=== PATIENT | female | born 1950 | race Caucasian/White ===

== ENCOUNTER 2016-04-09 20:27 | Emergency (ER) | payer MEDICARE, OTHER ==
[2016-04-09] MEDS ORDERED: oxyCODONE 5 MG TABLET PO STA (21:05)
[2016-04-09] MEDS ORDERED: oxyCODONE/ACET 5/325 Prepack 4 PO ONE (21:06)
[2016-04-09] MEDS ORDERED: oxyCODONE 5 MG TABLET ONE (21:06)
[2016-04-09] MEDS ORDERED: oxyCODONE/ACET 5/325 Prepack 4 PO STA (21:21)
== END 2016-04-09 21:15 | disposition home or self-care (01) ==
DX: S56.912A Strain of unspecified muscles, fascia and tendons at forearm level, left arm, initial encounter (principal); X50.3XXA Overexertion from repetitive movements, initial encounter; Y93.H2 Activity, gardening and landscaping; Y92.007 Garden or yard of unspecified non-institutional (private) residence as the place of occurrence of the external cause; I10 Essential (primary) hypertension; Z86.718 Personal history of other venous thrombosis and embolism; E11.42 Type 2 diabetes mellitus with diabetic polyneuropathy; Z79.4 Long term (current) use of insulin; E11.51 Type 2 diabetes mellitus with diabetic peripheral angiopathy without gangrene; Z79.01 Long term (current) use of anticoagulants; Z79.84 Long term (current) use of oral hypoglycemic drugs
CPT/HCPCS: 99283; A9270

== ENCOUNTER 2016-04-22 12:12 | Outpatient (CLI) | payer MEDICARE, OTHER | END 2016-04-22 12:13 | disposition home or self-care (01) | DX: R50.9 Fever, unspecified (principal); M79.1 Myalgia ==

== ENCOUNTER 2016-04-24 | Outpatient (CLI) | payer MEDICARE, OTHER | END 2016-04-24 00:51 | disposition critical access hospital (66) | CPT/HCPCS: A0425; A0427 ==

== ENCOUNTER 2016-04-24 01:02 | Inpatient (IN) | payer MEDICARE, OTHER ==
[2016-04-24] MEDS ORDERED: oxyCODONE 5 MG TABLET PO STA (01:30)
[2016-04-24] MEDS ORDERED: PIPERACILLIN/TAZOBACTAM 3.375 GM in SODIUM CHLORIDE 0.9% MINIBAG 100 ML IV STA (02:06)
[2016-04-24] MEDS ORDERED: VANCOMYCIN INJ 1 GM in SODIUM CHLORIDE 0.9% 250 ML IV STA (02:06)
[2016-04-24] MEDS ORDERED: OSELTAMIVIR 75 MG CAPSULE PO STA (02:07)
[2016-04-24] MEDS ORDERED: ACETAMINOPHEN 500 MG TABLET PO STA (02:11)
[2016-04-24] MEDS ORDERED: ACETAMINOPHEN 500 MG TABLET PO ONE (02:12)
[2016-04-24] MEDS ORDERED: OSELTAMIVIR 75 MG CAPSULE PO ONE (02:12)
[2016-04-24] MEDS ORDERED: oxyCODONE 5 MG TABLET ONE (02:12)
[2016-04-24] MEDS ORDERED: ALBUTEROL NEB 2.5 MG/3 ML INH PRN (02:47)
[2016-04-24] MEDS ORDERED: VANCOMYCIN PER PHARMACY 1 GM in SODIUM CHLORIDE 0.9% 250 ML IV SCH (03:00)
[2016-04-24] MEDS: GABAPENTIN 300 MG CAPSULE PO SCH ×2 (04:43→04:49)
[2016-04-24] MEDS: SODIUM CHLORIDE FLUSH 0.9% 10 ML SYRINGE IVP PRN (04:43)
[2016-04-24] MEDS: SODIUM CHLORIDE 0.9% 1,000 ML IV SCH (04:43)
[2016-04-24] MEDS: HYDROcod/ACETAM 7.5 MG/325 MG TABLET PO SCH ×7 (04:43→21:58)
[2016-04-24] MEDS ORDERED: VANCOMYCIN INJ 1.75 GM in SODIUM CHLORIDE 0.9% 500 ML IV SCH (05:00)
[2016-04-24] MEDS ORDERED: DEXTROSE GEL 37.5 GM TUBE PO PRN ×2 (05:51→06:13)
[2016-04-24] MEDS ORDERED: DEXTROSE 5% 1,000 ML IV PRN ×2 (05:51→06:13)
[2016-04-24] MEDS ORDERED: DEXTROSE 50% ABBOJECT 25 GM/50 ML SYRINGE IVP PRN ×2 (05:51→06:13)
[2016-04-24] MEDS ORDERED: GLUCAGON 1 MG/ML VIAL SUBQ PRN ×2 (05:51→06:13)
[2016-04-24] MEDS ORDERED: methylPREDNISolone SUCCINATE 40 MG/ML VIAL IVP SCH (06:00)
[2016-04-24] MEDS ORDERED: metroNIDAZOLE 500 MG/100 ML 100 ML IV SCH (06:00)
[2016-04-24] MEDS ORDERED: GABAPENTIN 300 MG CAPSULE PO SCH (06:00)
[2016-04-24] MEDS: PANTOPRAZOLE 40 MG TABLET PO SCH (06:56)
[2016-04-24] MEDS: CYCLOBENZAPRINE 10 MG TABLET PO SCH ×3 (06:56→21:59)
[2016-04-24] MEDS: SODIUM CHLORIDE FLUSH 0.9% 10 ML SYRINGE IVP SCH ×3 (06:57→21:59)
[2016-04-24] MEDS: BENZOCAINE/MENTHOL LOZENGE MM PRN (06:57)
[2016-04-24] MEDS ORDERED: AZTREONAM 1 GM in SODIUM CHLORIDE 0.9% MINIBAG 100 ML IV SCH (07:00)
[2016-04-24] MEDS: LEVOTHYROXINE 100 MCG TABLET PO SCH (07:11)
[2016-04-24] MEDS ORDERED: INSULIN GLARGINE 300 UNIT/3 ML PEN SUBQ SCH ×4 (08:00→21:00)
[2016-04-24] MEDS: TOLTERODINE LA 2 MG CAPSULE PO SCH (08:16)
[2016-04-24] MEDS: POTASSIUM CHLORIDE 10 MEQ CAPSULE PO SCH (08:16)
[2016-04-24] MEDS: FERROUS GLUCONATE 324 MG TABLET PO SCH (08:17)
[2016-04-24] MEDS: LOSARTAN 50 MG TABLET PO SCH (08:17)
[2016-04-24] MEDS: OSELTAMIVIR 75 MG CAPSULE PO SCH ×2 (08:18→21:59)
[2016-04-24] MEDS: MONTELUKAST 10 MG TABLET PO SCH (08:18)
[2016-04-24] MEDS: FEXOFENADINE 60 MG TABLET PO SCH (08:18)
[2016-04-24] MEDS: POLYETHYLENE GLYCOL 3350 17 GM PACKET PO SCH (08:19)
[2016-04-24] MEDS: INSULIN ASPART 300 UNIT/3 ML PEN SUBQ SCH ×4 (08:20→21:51)
[2016-04-24] MEDS ORDERED: guaiFENesin 600 MG TABLET PO SCH (09:00)
[2016-04-24] MEDS: PREGABALIN 25 MG CAPSULE PO SCH ×2 (11:40→21:58)
[2016-04-24] MEDS: PIPERACILLIN/TAZOBACTAM 3.375 GM in SODIUM CHLORIDE 0.9% MINIBAG 100 ML IV SCH ×2 (11:41→18:52)
[2016-04-24] MEDS: guaiFENesin/DEXTROMETHORPHAN 10 ML UDC PO PRN ×2 (16:23→22:12)
[2016-04-24] MEDS: HYDROmorphone 1 MG/ML SYRINGE IVP PRN (16:23)
[2016-04-24] MEDS: FORMOTEROL FUMARATE NEB 20 MCG/2 ML INH SCH (19:50)
[2016-04-24] MEDS: BUDESONIDE 0.5 MG/2 ML NEB INH SCH (19:50)
[2016-04-24] MEDS ORDERED: METOPROLOL 5 MG/5 ML VIAL IVP SCH (20:00)
[2016-04-24] MEDS: methylPREDNISolone SUCCINATE 125 MG/2 ML VIAL IVP SCH (21:59)
[2016-04-25] MEDS: HYDROcod/ACETAM 7.5 MG/325 MG TABLET PO SCH ×6 (00:59→21:15)
[2016-04-25] MEDS: SODIUM CHLORIDE 0.9% 1,000 ML IV SCH ×3 (01:20→13:43)
[2016-04-25] MEDS: PIPERACILLIN/TAZOBACTAM 3.375 GM in SODIUM CHLORIDE 0.9% MINIBAG 100 ML IV SCH ×3 (02:38→18:09)
[2016-04-25] MEDS: guaiFENesin/DEXTROMETHORPHAN 10 ML UDC PO PRN ×3 (04:51→19:48)
[2016-04-25] MEDS: IPRATROPIUM/ALBUTEROL 3 ML NEB INH PRN ×3 (05:15→16:25)
[2016-04-25] MEDS: HYDROmorphone 1 MG/ML SYRINGE IVP PRN ×3 (05:50→18:58)
[2016-04-25] MEDS: SODIUM CHLORIDE FLUSH 0.9% 10 ML SYRINGE IVP SCH ×3 (05:50→16:28)
[2016-04-25] MEDS: CYCLOBENZAPRINE 10 MG TABLET PO SCH ×3 (07:07→21:15)
[2016-04-25] MEDS: LEVOTHYROXINE 100 MCG TABLET PO SCH (07:32)
[2016-04-25] MEDS: PANTOPRAZOLE 40 MG TABLET PO SCH (07:32)
[2016-04-25] MEDS ORDERED: SACCHAROMYCES BOULARDII 250 MG CAPSULE PO SCH ×2 (08:00→17:00)
[2016-04-25] MEDS: INSULIN ASPART 300 UNIT/3 ML PEN SUBQ SCH ×4 (08:13→21:19)
[2016-04-25] MEDS: POTASSIUM CHLORIDE 10 MEQ CAPSULE PO SCH (08:17)
[2016-04-25] MEDS: PREGABALIN 25 MG CAPSULE PO SCH ×2 (08:17→21:14)
[2016-04-25] MEDS: FERROUS GLUCONATE 324 MG TABLET PO SCH (08:18)
[2016-04-25] MEDS: TOLTERODINE LA 2 MG CAPSULE PO SCH (08:19)
[2016-04-25] MEDS: MONTELUKAST 10 MG TABLET PO SCH (08:19)
[2016-04-25] MEDS: OSELTAMIVIR 75 MG CAPSULE PO SCH ×2 (08:19→21:15)
[2016-04-25] MEDS: FEXOFENADINE 60 MG TABLET PO SCH (08:20)
[2016-04-25] MEDS: POLYETHYLENE GLYCOL 3350 17 GM PACKET PO SCH (08:22)
[2016-04-25] MEDS: methylPREDNISolone SUCCINATE 125 MG/2 ML VIAL IVP SCH (08:24)
[2016-04-25] MEDS: LOSARTAN 50 MG TABLET PO SCH (08:27)
[2016-04-25] MEDS: BUDESONIDE 0.5 MG/2 ML NEB INH SCH ×2 (09:30→20:15)
[2016-04-25] MEDS: FORMOTEROL FUMARATE NEB 20 MCG/2 ML INH SCH ×2 (09:30→20:15)
[2016-04-25] MEDS: INSULIN GLARGINE 300 UNIT/3 ML PEN SUBQ SCH ×2 (11:45→21:17)
[2016-04-25] MEDS: SACCHAROMYCES BOULARDII 250 MG CAPSULE PO SCH (16:27)
[2016-04-25] MEDS ORDERED: WARFARIN 5 MG TABLET PO STA (17:20)
[2016-04-25] MEDS ORDERED: methylPREDNISolone SUCCINATE 125 MG/2 ML VIAL IVP SCH (21:00)
[2016-04-25] MEDS ORDERED: INSULIN ASPART 300 UNIT/3 ML PEN SUBQ SCH (21:19)
[2016-04-26] MEDS: SODIUM CHLORIDE 0.9% 1,000 ML IV SCH ×3 (16:50→16:57)
[2016-04-26] MEDS: CYCLOBENZAPRINE 10 MG TABLET PO SCH ×3 (16:51→21:33)
[2016-04-26] MEDS: SODIUM CHLORIDE FLUSH 0.9% 10 ML SYRINGE IVP SCH ×3 (16:51→21:35)
[2016-04-26] MEDS: HYDROcod/ACETAM 7.5 MG/325 MG TABLET PO SCH ×6 (16:51→21:33)
[2016-04-26] MEDS: PIPERACILLIN/TAZOBACTAM 3.375 GM in SODIUM CHLORIDE 0.9% MINIBAG 100 ML IV SCH ×3 (16:51→18:28)
[2016-04-26] MEDS: FERROUS GLUCONATE 324 MG TABLET PO SCH (16:52)
[2016-04-26] MEDS: BUDESONIDE 0.5 MG/2 ML NEB INH SCH (16:52)
[2016-04-26] MEDS: FORMOTEROL FUMARATE NEB 20 MCG/2 ML INH SCH (16:52)
[2016-04-26] MEDS: LEVOTHYROXINE 100 MCG TABLET PO SCH (16:52)
[2016-04-26] MEDS: PANTOPRAZOLE 40 MG TABLET PO SCH (16:52)
[2016-04-26] MEDS: INSULIN ASPART 300 UNIT/3 ML PEN SUBQ SCH ×4 (16:53→21:33)
[2016-04-26] MEDS: INSULIN GLARGINE 300 UNIT/3 ML PEN SUBQ SCH ×2 (16:53→21:35)
[2016-04-26] MEDS: MONTELUKAST 10 MG TABLET PO SCH (16:54)
[2016-04-26] MEDS: FEXOFENADINE 60 MG TABLET PO SCH (16:54)
[2016-04-26] MEDS: SACCHAROMYCES BOULARDII 250 MG CAPSULE PO SCH ×2 (16:54→18:28)
[2016-04-26] MEDS: POLYETHYLENE GLYCOL 3350 17 GM PACKET PO SCH (16:54)
[2016-04-26] MEDS: OSELTAMIVIR 75 MG CAPSULE PO SCH ×2 (16:54→21:33)
[2016-04-26] MEDS: LOSARTAN 50 MG TABLET PO SCH (16:54)
[2016-04-26] MEDS: TOLTERODINE LA 2 MG CAPSULE PO SCH (16:55)
[2016-04-26] MEDS: POTASSIUM CHLORIDE 10 MEQ CAPSULE PO SCH (16:55)
[2016-04-26] MEDS: PREGABALIN 25 MG CAPSULE PO SCH ×2 (16:55→21:32)
[2016-04-26] MEDS: guaiFENesin/DEXTROMETHORPHAN 10 ML UDC PO PRN (18:32)
[2016-04-26] MEDS ORDERED: SODIUM CHLORIDE INHALATION 3 ML NEB ONE (19:34)
[2016-04-26] MEDS: HYDROmorphone 1 MG/ML SYRINGE IVP PRN (19:36)
[2016-04-26] MEDS: LEVALBUTEROL 1.25 MG INH PRN (19:40)
[2016-04-26] MEDS ORDERED: WARFARIN 5 MG TABLET PO SCH (20:30)
[2016-04-26] MEDS: BENZOCAINE/MENTHOL LOZENGE MM PRN (21:10)
[2016-04-27] MEDS: HYDROcod/ACETAM 7.5 MG/325 MG TABLET PO SCH ×3 (00:20→08:48)
[2016-04-27] MEDS: PIPERACILLIN/TAZOBACTAM 3.375 GM in SODIUM CHLORIDE 0.9% MINIBAG 100 ML IV SCH ×2 (01:45→03:00)
[2016-04-27] MEDS: SODIUM CHLORIDE FLUSH 0.9% 10 ML SYRINGE IVP PRN (01:46)
[2016-04-27] MEDS: CYCLOBENZAPRINE 10 MG TABLET PO SCH (06:16)
[2016-04-27] MEDS: SODIUM CHLORIDE FLUSH 0.9% 10 ML SYRINGE IVP SCH (06:16)
[2016-04-27] MEDS: PANTOPRAZOLE 40 MG TABLET PO SCH (06:16)
[2016-04-27] MEDS: LEVOTHYROXINE 100 MCG TABLET PO SCH (06:16)
[2016-04-27] MEDS ORDERED: SODIUM CHLORIDE INHALATION 3 ML NEB ONE (07:07)
[2016-04-27] MEDS: LEVALBUTEROL 1.25 MG INH PRN (08:10)
[2016-04-27] MEDS: INSULIN GLARGINE 300 UNIT/3 ML PEN SUBQ SCH (08:43)
[2016-04-27] MEDS: guaiFENesin/DEXTROMETHORPHAN 10 ML UDC PO PRN (08:46)
[2016-04-27] MEDS: TOLTERODINE LA 2 MG CAPSULE PO SCH (08:47)
[2016-04-27] MEDS: OSELTAMIVIR 75 MG CAPSULE PO SCH (08:47)
[2016-04-27] MEDS: SACCHAROMYCES BOULARDII 250 MG CAPSULE PO SCH (08:47)
[2016-04-27] MEDS: FEXOFENADINE 60 MG TABLET PO SCH (08:47)
[2016-04-27] MEDS: PREGABALIN 25 MG CAPSULE PO SCH (08:47)
[2016-04-27] MEDS: FERROUS GLUCONATE 324 MG TABLET PO SCH (08:48)
[2016-04-27] MEDS: POTASSIUM CHLORIDE 10 MEQ CAPSULE PO SCH (08:48)
[2016-04-27] MEDS: LOSARTAN 50 MG TABLET PO SCH (08:48)
[2016-04-27] MEDS: MONTELUKAST 10 MG TABLET PO SCH (08:48)
[2016-04-27] MEDS: INSULIN ASPART 300 UNIT/3 ML PEN SUBQ SCH (08:49)
[2016-04-27] MEDS: POLYETHYLENE GLYCOL 3350 17 GM PACKET PO SCH (08:49)
[2016-04-27] MEDS ORDERED: WARFARIN 5 MG TABLET PO SCH (14:00)
== END 2016-04-27 10:30 | disposition home or self-care (01) | DRG 193 ==
DX: J10.1 Influenza due to other identified influenza virus with other respiratory manifestations (principal); D66 Hereditary factor VIII deficiency; L03.116 Cellulitis of left lower limb; R41.82 Altered mental status, unspecified; N39.0 Urinary tract infection, site not specified; R94.31 Abnormal electrocardiogram [ECG] [EKG]; E11.42 Type 2 diabetes mellitus with diabetic polyneuropathy; E11.65 Type 2 diabetes mellitus with hyperglycemia; I73.9 Peripheral vascular disease, unspecified; B96.20 Unspecified Escherichia coli [E. coli] as the cause of diseases classified elsewhere; K43.2 Incisional hernia without obstruction or gangrene; E78.00 Pure hypercholesterolemia, unspecified; G47.30 Sleep apnea, unspecified; I10 Essential (primary) hypertension; K43.9 Ventral hernia without obstruction or gangrene; Z86.19 Personal history of other infectious and parasitic diseases; E03.9 Hypothyroidism, unspecified; M19.90 Unspecified osteoarthritis, unspecified site; G47.33 Obstructive sleep apnea (adult) (pediatric); E78.5 Hyperlipidemia, unspecified; E66.01 Morbid (severe) obesity due to excess calories; D75.82 Heparin induced thrombocytopenia (HIT); Z68.36 Body mass index [BMI] 36.0-36.9, adult; K44.9 Diaphragmatic hernia without obstruction or gangrene; N81.10 Cystocele, unspecified; R00.0 Tachycardia, unspecified; R53.1 Weakness; Z98.84 Bariatric surgery status; Z79.4 Long term (current) use of insulin; Z79.02 Long term (current) use of antithrombotics/antiplatelets; Z79.51 Long term (current) use of inhaled steroids; Z79.891 Long term (current) use of opiate analgesic; Z96.659 Presence of unspecified artificial knee joint; Z79.899 Other long term (current) drug therapy; Z96.642 Presence of left artificial hip joint; Z96.653 Presence of artificial knee joint, bilateral; Z86.718 Personal history of other venous thrombosis and embolism; Z66 Do not resuscitate

== ENCOUNTER 2016-11-14 14:54 | Outpatient (CLI) | payer MEDICARE, OTHER ==
[2016-11-14 15:56] LABS: CREATININE 0.8 mg/dL (0.4-1.0)
== END 2016-11-14 14:55 | disposition home or self-care (01) ==
LOC: LAB 14:54
PROVIDERS: ATTEND Internal Medicine
DX: Z79.899 Other long term (current) drug therapy (principal)
CPT/HCPCS: 36415; 82565; 84520

== ENCOUNTER 2017-05-29 09:53 | Outpatient (CLI) | payer MEDICARE, OTHER | END 2017-05-29 09:54 | disposition home or self-care (01) | LOC: NS 09:53 | PROVIDERS: ATTEND Internal Medicine | DX: Z71.3 Dietary counseling and surveillance (principal); E11.9 Type 2 diabetes mellitus without complications; Z68.41 Body mass index [BMI] 40.0-44.9, adult; Z79.4 Long term (current) use of insulin | CPT/HCPCS: 97802 ==

== ENCOUNTER 2017-06-18 09:50 | Outpatient (CLI) | payer MEDICARE, OTHER | END 2017-06-18 09:51 | disposition home or self-care (01) | LOC: NS 09:50 | PROVIDERS: ATTEND Internal Medicine | DX: Z71.3 Dietary counseling and surveillance (principal); E11.9 Type 2 diabetes mellitus without complications; Z79.4 Long term (current) use of insulin | CPT/HCPCS: 97803 ==

== ENCOUNTER 2018-08-02 17:04 | Outpatient (CLI) | payer MEDICARE, BC, OTHER | END 2018-08-02 17:05 | disposition critical access hospital (66) | LOC: EMS 17:04 | PROVIDERS: ATTEND Surgery | DX: R41.82 Altered mental status, unspecified (principal); R09.89 Other specified symptoms and signs involving the circulatory and respiratory systems; R45.1 Restlessness and agitation | CPT/HCPCS: A0425; A0427 ==

== ENCOUNTER 2018-08-02 17:16 | Inpatient (IN) | payer MEDICARE, BC, OTHER ==
--- NOTE | 2018-08-02 17:39 | ED Physician Documentation ---
History of Present Illness - Stated complaint Stated Complaint: ALOC - Chief complaint Chief Complaint: Resp - History obtained from History obtained from: Patient, Family (), EMS - History of Present Illness Timing: Other (Increasing confusion x48 hours c/w prior episodes of septicemia. Much worse this afternoon. 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[employer] F[employer]ER: None : Other HEENT: Dental implants Psych: None Musculoskeletal: Osteoarthritis, Rheumatoid arthritis Derm: Other drug resistant infections - Past Surgical History Past Surgical History: Yes General: Cholecystectomy, Other Ortho: Knee replacement, Arthroscopic surgery, Carpal Tunnel surgery, Other /ADVISOR [employer]ER: section, Hysterectomy HEENT: Tonsil/Adenoidectomy - Present Medications Home Medications: Ambulatory Orders Medication Instructions Recorded Confirmed Albuterol Sulfate [Proair Hfa 2 puffs INH Q4H PRN 04/24/16 04/24/16 Inhaler] Celecoxib [Celebrex] 200 mg PO DAILY 04/24/16 04/24/16 Cyclobenzaprine [Flexeril] 10 mg PO TID 04/24/16 04/24/16 Esomeprazole [NexIUM] 40 mg PO DAILY 04/24/16 04/24/16 Fexofenadine HCl [Latoya Allergy] 180 mg PO DAILY 04/24/16 04/24/16 Fluticasone [Flonase] 2 spray CROW DAILY 04/24/16 04/24/16 Glipizide [Glucotrol Xl] 5 mg PO DAILY 04/24/16 04/24/16 Hydrocodone/Acetaminophen 2 tab PO Q4H PRN 04/24/16 04/24/16 [Hydrocodon-Acetaminoph 7.5-325] Insulin Glargine,Hum.rec.anlog 22 units SUBQ QPM 04/24/16 04/24/16 [Lantus Solostar] Insulin Glargine,Hum.rec.anlog 32 units SUBQ DAILY 04/24/16 04/24/16 [Lantus Solostar] Insulin Lispro [Humalog Kwikpen 0 - 25 units SUBQ .SLIDINGSCALE PRN 04/24/16 04/24/16 U-100] Levothyroxine Sodium [Synthroid] 200 mcg PO DAILY 04/24/16 04/24/16 Losartan [Cozaar] 25 mg PO DAILY 04/24/16 04/24/16 Montelukast [Singulair] 10 mg PO DAILY 04/24/16 04/24/16 Potassium Chloride 10 meq PO DAILY 04/24/16 04/24/16 Pregabalin [Lyrica] 50 mg PO TID 04/24/16 04/24/16 Tolterodine Tartrate [Detrol] 4 mg PO DAILY 04/24/16 04/24/16 Warfarin Sodium 7.5 mg PO DAILY 04/24/16 04/24/16 hydroCHLOROthiazide [Hydrodiuril] 50 mg PO DAILY 04/24/16 04/24/16 - Allergies Allergies/Adverse Reactions: Allergies Allergy/AdvReac Type Severity Reaction Status Date / Time aspirin Allergy Severe Respiratory Verified 04/24/16 02:04 cefamandole nafate * Allergy Severe Respiratory Verified 04/24/16 02:04 [From Mandol] Heparin Analogues Allergy Severe Respiratory Verified 04/24/16 02:04 meperidine HCl * Allergy Severe Respiratory Verified 04/24/16 02:04 [From Demerol] naproxen Allergy Severe Respiratory Verified 04/24/16 02:04 rofecoxib [From Vioxx] Allergy Severe Respiratory Verified 04/24/16 02:04 zoster vaccine live Allergy Severe Respiratory Verified 04/24/16 02:04 promethazine HCl * Allergy Respiratory Verified 04/24/16 02:04 [From Phenergan] Pdudiwo-Bin-Xta Reductase Allergy Respiratory Verified 04/24/16 02:04 Inhibitor amoxicillin trihydrate * AdvReac Intermediate Cramps Verified 04/24/16 02:04 [From Augmentin] erythromycin base AdvReac Intermediate Dizziness Verified 04/24/16 02:04 [Erythromycin Base] metformin AdvReac Intermediate Nausea Verified 04/24/16 02:04 potassium clavulanate * AdvReac Intermediate Cramps Verified 04/24/16 02:04 [From Augmentin] Sulfa (Sulfonamide AdvReac Intermediate Itching Verified 04/24/16 02:04 Antibiotics) levofloxacin [From Levaquin] AdvReac Mild Nausea Verified 04/24/16 02:04 cadexomer iodine * AdvReac Unknown Unknown Verified 04/24/16 02:04 [From Iodosorb] bee stings AdvReac Severe Respiratory Uncoded 04/24/16 02:04 - Social History Does the pt smoke?: No Smoking Status: Never smoker Does the pt drink ETOH?: Yes Does the pt have substance abuse?: No - Family History Family history: reports: Non contributory - Immunizations Immunizations are current?: Yes - POLST Patient has POLST: No PD ED PE NORMAL - Vitals Vital signs reviewed: Yes (tachycardic and tachypneic.) - General General: Other (A/O x2) - HEENT HEENT: PERRL, EOMI - Neck Neck: Supple, no meningeal sign, No bony TTP - Cardiac Cardiac: Other (tachycardic) - Abdomen Abdomen: Soft, Non tender - Back Back: No CVA TTP, No spinal TTP - Derm Derm: Normal color, Warm and dry - Extremities Extremities: Other (chronic venous stasis) - Neuro Neuro: Other (A/Ox2) Eye Opening: Spontaneous Motor: Obeys Commands Results - Vitals Vitals: Vital Signs - 24 hr 08/02/18 08/02/18 08/02/18 17:23 18:07 19:23 Temperature 98.3 C H 37.4 C Heart Rate 125 H 118 H 112 H Respiratory 32 H 14 16 Rate Blood Pressure 166/98 H 141/67 H 137/68 H O2 Saturation 99 96 96 08/02/18 08/02/18 19:46 20:08 Temperature Heart Rate 109 H 107 H Respiratory 17 20 Rate Blood Pressure 123/68 134/70 H O2 Saturation 93 93 Oxygen O2 Source Nasal cannula Oxygen Flow Rate 3 - EKG (time done) 1744 Rate: Rate (enter#) (126) Rhythm: Sinus tachycardia [place]: Normal Intervals: Normal [place] QRS: Low voltage Ischemia: Non specific changes Computer interpretation: Agree with computer - Labs Labs: Laboratory Tests 08/02/18 08/02/18 08/02/18 17:40 17:40 17:40 WBC 14.3 H RBC 4.28 Hgb 12.6 Hct 37.8 MCV 88.3 MCH 29.4 MCHC 33.3 RDW 13.3 Plt Count 228 MPV 8.1 Neut # (Auto) 13.1 H Lymph # (Auto) 0.3 L Borden # (Auto) 0.7 Eos # (Auto) 0.0 Baso # (Auto) 0.0 Absolute Nucleated RBC 0.00 Nucleated RBC % 0.0 PT INR VBG pH VBG pCO2 VBG pO2 VBG HCO3 VBG Total CO2 VBG O2 Saturation VBG Base Excess Sodium 135 Potassium 3.4 L Chloride 96 L Carbon Dioxide 26 Anion Gap 13.0 BUN 25 H Creatinine 0.7 Estimated GFR (MDRD) 83 L Glucose 184 H Lactic Acid 0.8 Calcium 9.0 Magnesium 1.5 L Total Bilirubin 1.0 AST 26 ALT 25 Alkaline Phosphatase 79 Troponin I Total Protein 7.4 Albumin 3.6 Globulin 3.8 Albumin/Globulin Ratio 0.9 L Lipase 20 L Urine Color Urine Clarity Urine pH Ur Specific Coin Urine Protein Urine Glucose (UA) Urine Ketones Urine Occult Blood Urine Nitrite Urine Bilirubin Urine Urobilinogen Ur Leukocyte Esterase Urine RBC Urine WBC Ur Squamous Epith Cells Urine Bacteria Ur Microscopic Review Urine Culture Comments 08/02/18 08/02/18 08/02/18 17:40 17:40 17:40 WBC RBC Hgb Hct MCV MCH MCHC RDW Plt Count MPV Neut # (Auto) Lymph # (Auto) Borden # (Auto) Eos # (Auto) Baso # (Auto) Absolute Nucleated RBC Nucleated RBC % PT 27.1 H INR 2.4 H VBG pH 7.435 H VBG pCO2 42.9 VBG pO2 33.1 VBG HCO3 28.2 H VBG Total CO2 29.5 H VBG O2 Saturation 68.8 VBG Base Excess 3.5 H Sodium Potassium Chloride Carbon Dioxide Anion Gap BUN Creatinine Estimated GFR (MDRD) Glucose Lactic Acid Calcium Magnesium Total Bilirubin AST ALT Alkaline Phosphatase Troponin I < 0.04 Total Protein Albumin Globulin Albumin/Globulin Ratio Lipase Urine Color Urine Clarity Urine pH Ur Specific Coin Urine Protein Urine Glucose (UA) Urine Ketones Urine Occult Blood Urine Nitrite Urine Bilirubin Urine Urobilinogen Ur Leukocyte Esterase Urine RBC Urine WBC Ur Squamous Epith Cells Urine Bacteria Ur Microscopic Review Urine Culture Comments 08/02/18 19:20 WBC RBC Hgb Hct MCV MCH MCHC RDW Plt Count MPV Neut # (Auto) Lymph # (Auto) Borden # (Auto) Eos # (Auto) Baso # (Auto) Absolute Nucleated RBC Nucleated RBC % PT INR VBG pH VBG pCO2 VBG pO2 VBG HCO3 VBG Total CO2 VBG O2 Saturation VBG Base Excess Sodium Potassium Chloride Carbon Dioxide Anion Gap BUN Creatinine Estimated GFR (MDRD) Glucose Lactic Acid Calcium Magnesium Total Bilirubin AST ALT Alkaline Phosphatase Troponin I Total Protein Albumin Globulin Albumin/Globulin Ratio Lipase Urine Color YELLOW Urine Clarity CLEAR Urine pH 5.5 Ur Specific Coin 1.020 Urine Protein TRACE Urine Glucose (UA) NEGATIVE Urine Ketones 15 H Urine Occult Blood MODERATE H Urine Nitrite POSITIVE H Urine Bilirubin NEGATIVE Urine Urobilinogen 0.2 (NORMAL) Ur Leukocyte Esterase SMALL H Urine RBC 6-10 H Urine WBC >25 H Ur Squamous Epith Cells FEW Squamous Urine Bacteria Many H Ur Microscopic Review INDICATED Urine Culture Comments INDICATED - Rads (name of study) 1v chest Radiology: EMP read contemporaneously (viral pattern) PD MEDICAL DECISION MAKING - ED course ED course: This is a 67-year-old woman who presents with tachycardia, tachypnea, worsening altered mental status and fever. Note that the nurse's notes document 98.3 but they told me it was 38.3 Celsius. Per the this is consistent with past episodes of sepsis and UTI is found to be the source. Noting multiple antibiotic allergies she was given aztreonam and vancomycin after blood cultures. Her mental status improved significantly and her oxygen requirement waned. Spoke with Dr. Lucio for admission at 8 PM. Departure - Departure Disposition: 66 [facility] DC/Xfer Clinical Impression: UTI (urinary tract infection) Qualifiers: Urinary tract infection type: acute pyelonephritis Qualified Code(s): N10 - A cute pyelonephritis Diabetes type 2, controlled Qualifiers: Diabetes mellitus custodial insulin use: unspecified custodial insulin use status Diabetes mellitus complication status: with hyperglycemia Qualified Code(s): E11.65 - Type 2 diabetes mellitus with hyperglycemia Mental status change Qualifiers: Altered mental status type: delirium Qualified Code(s): R41.0 - Disorientation, unspecified Condition: Serious
[2018-08-02] MEDS ORDERED: AZTREONAM 2 GM in SODIUM CHLORIDE 0.9% MINIBAG 100 ML IV STA (17:44)
[2018-08-02] MEDS ORDERED: VANCOMYCIN INJ 1.5 GM in SODIUM CHLORIDE 0.9% 500 ML IV STA (17:44)
[2018-08-02 17:51] LABS: BASOPHILS % (AUTO) 0.2 %; EOSINOPHILS % (AUTO) 0.1 %; HGB - HEMOGLOBIN 12.6 g/dL (12.0-16.0); LYMPHOCYTES # (AUTO) 0.3 10^3/uL (1.5-3.5); LYMPHOCYTES % (AUTO) 2.3 %; MEAN CORPUSCULAR HEMOGLOBIN 29.4 pg (27.0-31.0); MEAN CORPUSCULAR HGB CONC 33.3 g/dL (32.0-36.0); MEAN CORPUSCULAR VOLUME 88.3 fL (81.0-99.0); MEAN PLATELET VOLUME 8.1 fL (7.9-10.8); MONOCYTES # (AUTO) 0.7 10^3/uL (0.0-1.0); MONOCYTES % (AUTO) 5.2 %; NEUTROPHILS # (AUTO) 13.1 10^3/uL (1.5-6.6); NEUTROPHILS % (AUTO) 92.2 %; PLT - PLATELET COUNT 228 10^3/uL (130-450); RED BLOOD COUNT 4.28 10^6/uL (4.20-5.40); RED CELL DISTRIBUTION WIDTH 13.3 % (12.0-15.0); VBG BASE EXCESS 3.5 mmol/L (-2 - +2); VBG PCO2 42.9 mmHg (41-51); VBG PH 7.435 (7.31-7.41); VBG PO2 33.1 mmHg (25-47); VBG TOTAL CO2 29.5 mmol/L (24-29); WHITE BLOOD COUNT 14.3 x10^3/uL (4.8-10.8)
[2018-08-02] MEDS ORDERED: DEXAMETHASONE 10 MG/ML VIAL IVP STA (17:57)
[2018-08-02] MEDS ORDERED: IPRATROPIUM/ALBUTEROL 3 ML NEB INH STA (17:57)
[2018-08-02 17:58] LABS: INR 2.4 (0.8-1.2); PT - PROTHROMBIN TIME 27.1 secs (9.9-12.6)
[2018-08-02] MEDS ORDERED: SODIUM CHLORIDE 0.9% MINIBAG 100 ML IV ONE ×2 (17:58→18:21)
[2018-08-02 18:01] LABS: ALBUMIN 3.6 g/dL (3.2-5.5); ALBUMIN/GLOBULIN RATIO 0.9 (1.0-2.2); CREATININE 0.7 mg/dL (0.4-1.0); MAGNESIUM 1.5 mg/dL (1.7-2.8); TOTAL PROTEIN 7.4 g/dL (6.7-8.2)
--- NOTE | 2018-08-02 18:27 | XRAY Report ---
Reason: DYSPNEA Procedure Date: 08/02/2018 Accession Number: [id number] / [id number] Procedure: XR - Chest 1 View X-Ray CPT Code: 05107 FULL RESULT: EXAM: CHEST RADIOGRAPHY EXAM DATE: 08/02/2018 06:11 PM. CLINICAL HISTORY: Dyspnea. COMPARISON: CHEST 1 VIEW 04/24/2016 1:48 AM. TECHNIQUE: 1 view. FINDINGS: Lungs/Pleura: No focal consolidation evident. There is however perihilar bronchial wall thickening diffusely somewhat increased since last exam. Lung volumes are low. Vascular crowding at the bases present. The pulmonary vasculature is within normal limits. Mediastinum: Within exam limitations, the cardiomediastinal contour is normal. Other: None. IMPRESSION: 1. Increased moderate perihilar bronchial wall thickening may represent bronchitis, reactive airways disease or viral pneumonia. 2. No focal consolidation evident. RADIA
[2018-08-02 19:30] LABS: BILIRUBIN,URINE NEGATIVE (NEGATIVE); GLUCOSE, URINE (UA) NEGATIVE (NEGATIVE); KETONES,URINE (UA) 15 mg/dL (NEGATIVE); LEUKOCYTE ESTERASE, URINE SMALL (NEGATIVE); NITRITE,URINE POSITIVE (NEGATIVE); OCCULT BLOOD,URINE MODERATE (NEGATIVE); PH,URINE 5.5 PH (5.0-7.5); PROTEIN,URINE TRACE mg/dL (NEGATIVE); UROBILINOGEN,URINE 0.2 (NORMAL) E.U./dL (NORMAL)
[2018-08-02 19:31] LABS: CLARITY,URINE CLEAR (CLEAR)
[2018-08-02 19:37] LABS: BACTERIA,URINE Many /HPF (None Seen); SQUAMOUS EPITHELIAL CELL,UR FEW Squamous (<= Few)
[2018-08-02] MEDS ORDERED: HYDROmorphone 1 MG/ML CARPUJECT IVP STA (19:51)
[2018-08-02] MEDS ORDERED: ACETAMINOPHEN 325 MG TABLET PO PRN (20:16)
[2018-08-02] MEDS ORDERED: HYDROcod/ACETAM 5/325 MG TABLET PO PRN (20:16)
[2018-08-02] MEDS ORDERED: ONDANSETRON ODT 4 MG TABLET TL PRN (20:16)
[2018-08-02] MEDS ORDERED: MORPHINE 2 MG/ML SYRINGE IVP PRN (20:16)
[2018-08-02] MEDS ORDERED: ZOLPIDEM 5 MG TABLET PO PRN (20:16)
[2018-08-02] MEDS ORDERED: ALBUTEROL NEB 2.5 MG/3 ML INH PRN (20:21)
--- NOTE | 2018-08-02 21:48 | HISTORY & PHYSICAL EXAMINATION ---
Chief Complaint - Chief Complaint Chief Complaint: Confusion History of Present Illness - Admitted From Admitted From:: Emergency Department - History Obtained From Records Reviewed: Current Hospital Stay History obtained from: Patient, , ED M.DDuane Exam Limitations: None - History of Present Illness HPI Comment/Other: Patient is a 67-year-old female with a medical history of UTI with sepsis, type 2 diabetes, hypothyroidism, recurrent cellulitis, abdominal wall defect with hernia, and obesity who presents with a 1 day history of confusion and change in mental status. This was noticed by the to a very mild extent last night but predominantly started to become more prevalent earlier today. Patient states she has a history of confusion and changes in mental status with infections which is more often related to Cellulitis, but in this case reports that about 3 days ago she started to notice a foul smell odor in her urine. She attempted to contact her PCPs office, and left a message through the front office staff hoping to either be seen or have a prescription for antibiotics for a self diagnosed UTI however she states no one contacted her from the office. In any case she dealt with it for a couple of days when she started to have very mild confusion last night, and more significant confusion today. In the emergency room she was also found to be hypoxic, initially placed on a 4 L nonrebreather, which was progressed to nasal cannula by the time of my examination. By the time of my examination she was relatively clear, and at baseline with no noticeable confusion. She had received IV fluids, a dose of aztreonam (Due to multiple antibiotic allergies) as well as vancomycin in the ED. Infection work-up was remarkable for a urinalysis with positive nitrites, and a relatively unremarkable chest x-ray, and a mildly elevated WBC count. Hospitalist service was asked to admit patient for UTI to treat with IV antibiotics. History - Past Medical History Cardiovascular: reports: Hypertension, High cholesterol, Peripheral Vascular Disease, Deep vein thrombosis Respiratory: reports: Sleep apnea Endocrine/Autoimmune: reports: Type 2 diabetes, HyPOthyroidism GI: reports: None PIPE CONNECTOR: reports: None : reports: Other HEENT: reports: Dental implants Psych: reports: None Musculoskeletal: reports: Osteoarthritis, Rheumatoid arthritis Derm: reports: Other drug resistant infections MRSA Hx?: No - Past Surgical History General: reports: Cholecystectomy, Other Ortho: reports: Knee replacement, Arthroscopic surgery, Carpal Tunnel surgery, Other /PIPE CONNECTOR: reports: section, Hysterectomy HEENT: reports: Tonsil/Adenoidectomy - Family & Social History Living arrangement: At home Living Situation: With spouse/s.o. - Substance History Use: Uses substance without health or social issues: NONE Abuse: Recurrent use of substance despite neg consequences: NONE Dependence: Experiences withdrawal or developed tolerances: NONE - POLST Patient has POLST: No POLST Status: DNR Meds/Allgy - Home Medications Home Medications: Ambulatory Orders Medication Instructions Recorded Confirmed Albuterol Sulfate [Proair Hfa 2 puffs INH Q4H PRN 04/24/16 04/24/16 Inhaler] Celecoxib [Celebrex] 200 mg PO DAILY 04/24/16 04/24/16 Cyclobenzaprine [Flexeril] 10 mg PO TID 04/24/16 04/24/16 Esomeprazole [NexIUM] 40 mg PO DAILY 04/24/16 04/24/16 Fexofenadine HCl [Latoya Allergy] 180 mg PO DAILY 04/24/16 04/24/16 Fluticasone [Flonase] 2 spray CROW DAILY 04/24/16 04/24/16 Glipizide [Glucotrol Xl] 5 mg PO DAILY 04/24/16 04/24/16 Hydrocodone/Acetaminophen 2 tab PO Q4H PRN 04/24/16 04/24/16 [Hydrocodon-Acetaminoph 7.5-325] Insulin Glargine,Hum.rec.anlog 22 units SUBQ QPM 04/24/16 04/24/16 [Lantus Solostar] Insulin Glargine,Hum.rec.anlog 32 units SUBQ DAILY 04/24/16 04/24/16 [Lantus Solostar] Insulin Lispro [Humalog Kwikpen 0 - 25 units SUBQ .SLIDINGSCALE PRN 04/24/16 04/24/16 U-100] Levothyroxine Sodium [Synthroid] 200 mcg PO DAILY 04/24/16 04/24/16 Losartan [Cozaar] 25 mg PO DAILY 04/24/16 04/24/16 Montelukast [Singulair] 10 mg PO DAILY 04/24/16 04/24/16 Potassium Chloride 10 meq PO DAILY 04/24/16 04/24/16 Pregabalin [Lyrica] 50 mg PO TID 04/24/16 04/24/16 Tolterodine Tartrate [Detrol] 4 mg PO DAILY 04/24/16 04/24/16 Warfarin Sodium 7.5 mg PO DAILY 04/24/16 04/24/16 hydroCHLOROthiazide [Hydrodiuril] 50 mg PO DAILY 04/24/16 04/24/16 - Allergies Allergies/Adverse Reactions: Allergies Allergy/AdvReac Type Severity Reaction Status Date / Time aspirin Allergy Severe Respiratory Verified 04/24/16 02:04 cefamandole nafate * Allergy Severe Respiratory Verified 04/24/16 02:04 [From Mandol] Heparin Analogues Allergy Severe Respiratory Verified 04/24/16 02:04 meperidine HCl * Allergy Severe Respiratory Verified 04/24/16 02:04 [From Demerol] naproxen Allergy Severe Respiratory Verified 04/24/16 02:04 rofecoxib [From Vioxx] Allergy Severe Respiratory Verified 04/24/16 02:04 zoster vaccine live Allergy Severe Respiratory Verified 04/24/16 02:04 promethazine HCl * Allergy Respiratory Verified 04/24/16 02:04 [From Phenergan] [id number] Reductase Allergy Respiratory Verified 04/24/16 02:04 Inhibitor amoxicillin trihydrate * AdvReac Intermediate Cramps Verified 04/24/16 02:04 [From Augmentin] erythromycin base AdvReac Intermediate Dizziness Verified 04/24/16 02:04 [Erythromycin Base] metformin AdvReac Intermediate Nausea Verified 04/24/16 02:04 potassium clavulanate * AdvReac Intermediate Cramps Verified 04/24/16 02:04 [From Augmentin] Sulfa (Sulfonamide AdvReac Intermediate Itching Verified 04/24/16 02:04 Antibiotics) levofloxacin [From Levaquin] AdvReac Mild Nausea Verified 04/24/16 02:04 cadexomer iodine * AdvReac Unknown Unknown Verified 04/24/16 02:04 [From Iodosorb] bee stings AdvReac Severe Respiratory Uncoded 04/24/16 02:04 Review of Systems - Constitutional Constitutional: reports: Fatigue, Fever, Chills, Weakness - Cardiovascular Cariovascular: denies: Chest pain - Respiratory Respiratory: denies: Cough, SOB at rest - Gastrointestinal Gastrointestinal: denies: Abdominal pain - Genitourinary Genitourinary: reports: Dysuria. denies: Flank pain, Urethral discharge - Musculoskeletal Musculoskeletal: reports: Back pain - Integumentary Integumentary: denies: Rash - Neurological Neurological: reports: General weakness. denies: Focal weakness, Headache - All Other Systems All Other Systems: reports: Reviewed and negative Prior Level of Functionality: Independent Exam - Vital Signs Reviewed Vital Signs: Yes Vital Signs: Vital Signs x48h Temp Pulse Resp BP Pulse Ox 08/02/18 21:03 101 H 14 132/77 H 94 08/02/18 20:30 106 H 14 118/102 H 97 08/02/18 20:08 107 H 20 134/70 H 93 08/02/18 19:46 109 H 17 123/68 93 08/02/18 19:23 37.4 C 112 H 16 137/68 H 96 08/02/18 18:07 118 H 14 141/67 H 96 08/02/18 17:23 98.3 C H 125 H 32 H 166/98 H 99 - Physical Exam General Appearance: positive: No acute distress Eyes Bilateral: positive: Normal inspection ENT: positive: ENT inspection nml Neck: positive: Nml inspection Respiratory: positive: Chest non-tender Cardiovascular: positive: Regular rate & rhythm Peripheral Pulses: positive: 2+ Abdomen: positive: Other (Patient has an obese abdomen with a massive abdominal wall defect with hernia, with overlying skin color changes but no evidence of infection) Skin: positive: Color nml Neurologic/Psychiatric: positive: Oriented x3 Sepsis Event Note (H) - Evaluation Current Stage of Sepsis: Ruled out Conclusion/Plan - Problem List (1) UTI (urinary tract infection) Conclusion/Plan: Urinalysis is suggestive of a probable E. coli infection. Given her multiple antibiotic allergies, will continue aztreonam, will hold vancomycin for now. Continue IV fluids as necessary, repeat WBC count in the morning. Follow culture and sensitivity and consider narrowing antibiotics based on sensitivity and patient's allergy profile.This is likely the underlying etiology of the confusion which has now since resolved. Qualifiers: Urinary tract infection type: acute cystitis Hematuria presence: without hematuria Qualified Code(s): N30.00 - Acute cystitis without hematuria (2) Diabetes type 2, controlled Conclusion/Plan: Continue home basal insulin with insulin sliding scale Qualifiers: Diabetes mellitus nursing home insulin use: unspecified medical terminologist insulin use status Diabetes mellitus complication status: with hyperglycemia Qualified Code(s): E11.65 - Type 2 diabetes mellitus with hyperglycemia (3) Mental status change Conclusion/Plan: Resolved, likely related to UTI, continue to monitor Qualifiers: Altered mental status type: delirium Qualified Code(s): R41.0 - Disorientation, unspecified (4) Anticoagulation goal of INR 2 to 3 Conclusion/Plan: Continue home dose of warfarin, check INR in the morning (5) Hypertension Conclusion/Plan: Controlled, continue home medications Qualifiers: Hypertension type: essential hypertension Qualified Code(s): I10 - Ess ential (primary) hypertension (6) Hypothyroidism Conclusion/Plan: Continue current dose. Given resolution of altered mental status, unlikely uncontrolled hypothyroidism related to Presenting confusion. - Lab Results Lab results reviewed: Yes Dheeraj Bones: 08/02/18 17:40 08/02/18 17:40 - Diagnostic Imaging Results Diagnostic Imaging Results: positive: Final report reviewed - EKG Results EKG Interpreted Independently: Yes
[2018-08-02] MEDS: SODIUM CHLORIDE FLUSH 0.9% 10 ML SYRINGE IVP PRN (22:21)
[2018-08-02] MEDS: PREGABALIN 25 MG CAPSULE PO SCH (22:21)
[2018-08-02] MEDS: FAMOTIDINE 20 MG TABLET PO SCH (22:21)
[2018-08-02] MEDS: SODIUM CHLORIDE 0.9% 1,000 ML IV SCH (22:23)
[2018-08-02 22:32] LABS: HB2 TOTAL 13.3 g/dL; HEMOGLOBIN A1C 0.62 g/dL; HEMOGLOBIN A1C % 6.4 % (4.6-6.2)
[2018-08-02] MEDS: AZTREONAM 1 GM in SODIUM CHLORIDE 0.9% MINIBAG 100 ML IV SCH (23:55)
[2018-08-02] MEDS: HYDROcod/ACETAM 7.5 MG/325 MG TABLET PO PRN (23:55)
[2018-08-03] MEDS: SODIUM CHLORIDE FLUSH 0.9% 10 ML SYRINGE IVP SCH ×3 (01:15→17:14)
[2018-08-03] MEDS: HYDROcod/ACETAM 7.5 MG/325 MG TABLET PO PRN ×3 (04:32→23:01)
[2018-08-03 05:22] LABS: CALCIUM 8.5 mg/dL (8.5-10.3)
[2018-08-03 05:23] LABS: PT - PROTHROMBIN TIME 22.4 secs (9.9-12.6)
[2018-08-03] MEDS: AZTREONAM 1 GM in SODIUM CHLORIDE 0.9% MINIBAG 100 ML IV SCH ×3 (06:01→18:26)
[2018-08-03] MEDS: SODIUM CHLORIDE 0.9% 1,000 ML IV SCH ×3 (06:01→23:57)
[2018-08-03] MEDS: LEVOTHYROXINE 100 MCG TABLET PO SCH (06:02)
[2018-08-03] MEDS: PREGABALIN 25 MG CAPSULE PO SCH ×3 (06:02→22:23)
[2018-08-03] MEDS: CELECOXIB 100 MG CAPSULE PO SCH (08:59)
[2018-08-03] MEDS ORDERED: TOLTERODINE LA 2 MG CAPSULE PO SCH (09:00)
[2018-08-03] MEDS: FLUTICASONE NASAL SPRAY NAS SCH (09:00)
[2018-08-03] MEDS ORDERED: hydroCHLOROthiazide 25 MG TABLET PO SCH (09:00)
[2018-08-03] MEDS: FAMOTIDINE 20 MG TABLET PO SCH ×2 (09:00→20:56)
[2018-08-03] MEDS: MONTELUKAST 10 MG TABLET PO SCH (09:01)
[2018-08-03] MEDS: POTASSIUM CHLORIDE 20 MEQ TABLET PO SCH ×2 (09:02→21:09)
[2018-08-03] MEDS: POTASSIUM CHLORIDE 10 MEQ CAPSULE PO SCH (09:02)
[2018-08-03] MEDS: LOSARTAN 50 MG TABLET PO SCH (09:03)
[2018-08-03] MEDS: POLYETHYLENE GLYCOL 3350 17 GM PACKET PO SCH (09:04)
[2018-08-03] MEDS: INSULIN ASPART 300 UNIT/3 ML PEN SUBQ SCH ×4 (09:11→20:57)
[2018-08-03] MEDS: INSULIN GLARGINE 300 UNIT/3 ML PEN SUBQ SCH ×2 (09:12→20:57)
--- NOTE | 2018-08-03 11:27 | PROVIDER PROGRESS NOTE ---
Assessment/Plan - Problem List (1) Mental status change Qualifiers: Altered mental status type: delirium Qualified Code(s): R41.0 - Disorientation, unspecified Assessment/Plan: Resolved entirely in the a.m. but recurred with a fever spike. Continue iv fluids. Recheck [place]. and treat infection. (2) UTI (urinary tract infection) Qualifiers: Urinary tract infection type: acute cystitis Hematuria presence: without hematuria Qualified Code(s): N30.00 - Acute cystitis without hematuria Assessment/Plan: Await urine and blood cultures. Reculture blood if she spikes a fever. If no imaging was one (to evaluate urinary tract, will obtain CT. Tachycardia was probably related to fever and pain and dehydration and has rsolved. She requests telemetry to be stopped. Will comply. Continue low dose iv Dilaudid for pelvic pain and start Pyridium for burning with urination. Continue empiric iv antibiotics. At least 48 hours of iv antibiotics are planeed before transition to po. Follow CBC. (3) Hypertension Qualifiers: Hypertension type: essential hypertension Qualified Code(s): I10 - Essential (primary) hypertension Assessment/Plan: Restart her BP meds. (4) Hypokalemia Assessment/Plan: Replace. Follow BMP daily. (5) Hypothyroidism Assessment/Plan: Continue Thyroid replacement meds. Check a routine a.m. TSH regarding replacement dose check. (6) Dehydration Assessment/Plan: She still has a dry oral mucosa, related to fever and dehydration and also to elevated glu. Continue gentle iv hydration. (7) IDDM (insulin dependent diabetes mellitus) Assessment/Plan: Restart her Insulin bid long acting dosing plus carb control diet and ss Insulin. (8) History of reactive airway disease Assessment/Plan: Continue her inhaler and Singulair at h.s. - Current Meds Current Meds: Current Medications Generic Name Dose Route Start Last Admin Trade Name Freq PRN Reason Stop Dose Admin Hydrocodone Bitart/Acetaminophen 2 tab 08/02/18 20:21 08/03/18 09:06 [place] 7.5/325 PO 2 tab Q4H PRN Administration PAIN Celecoxib 200 mg 08/03/18 09:00 08/03/18 08:59 Celebrex PO 200 mg DAILY MARCELINO Administration Famotidine 20 mg 08/02/18 21:00 08/03/18 09:00 Pepcid PO 20 mg BID MARCELINO Administration Fluticasone Propionate 0 sprays 08/03/18 09:00 08/03/18 09:00 Flonase CROW 2 spr DAILY MARCELINO Administration Hydrochlorothiazide 50 mg 08/03/18 09:00 08/03/18 09:01 Hydrodiuril PO 50 mg DAILY MARCELINO Administration Aztreonam 1 gm/ Sodium 100 mls @ 200 mls/hr 08/03/18 00:00 08/03/18 06:39 Chloride IV Infused Q6HR MARCELINO Infusion Sodium Chloride 1,000 mls @ 125 mls/hr 08/02/18 21:00 08/03/18 06:01 Normal Saline 0.9% IV 125 mls/hr .Q8H MARCELINO Administration Insulin Aspart 1 - 9 unit 08/03/18 08:00 08/03/18 09:11 Novolog SUBQ Not Given 0800,1200,1700,2100 [facility] Protocol Insulin Glargine 22 unit 08/02/18 21:00 08/03/18 09:12 Lantus Solostar SUBQ Not Given QPM [facility] Levothyroxine Sodium 200 mcg 08/03/18 07:00 08/03/18 06:02 Synthroid PO 200 mcg QDAC MARCELINO Administration Losartan Potassium 25 mg 08/03/18 09:00 08/03/18 09:03 Cozaar PO 25 mg DAILY MARCELINO Administration Montelukast Sodium 10 mg 08/03/18 09:00 08/03/18 09:01 Singulair PO 10 mg DAILY MARCELINO Administration Morphine Sulfate 2 mg 08/02/18 20:16 08/02/18 22:21 Morphine IVP 2 mg Q2H PRN Administration Pain 8 to 10 Polyethylene Glycol 17 gm 08/03/18 09:00 08/03/18 09:04 Miralax PO Not Given DAILY MARCELINO Potassium Chloride 10 meq 08/03/18 09:00 08/03/18 09:02 Micro-K PO 10 meq DAILY MARCELINO Administration Potassium Chloride 20 meq 08/03/18 09:00 08/03/18 09:02 K-[place] PO 08/03/18 21:01 20 meq BID MARCELINO Administration Pregabalin 50 mg 08/02/18 22:00 08/03/18 06:02 Lyrica PO 50 mg TID MARCELINO Administration Sodium Chloride 10 ml 08/02/18 20:16 08/02/18 22:21 Normal Saline Flush 0.9% IVP 10 ml PRN PRN Administration NEEDED PER PROVIDER ORDERS Sodium Chloride 10 ml 08/03/18 01:00 08/03/18 09:05 Normal Saline Flush 0.9% IVP 10 ml 0100,0900,1700 MARCELINO Administration Tolterodine Tartrate 4 mg 08/03/18 09:00 08/03/18 09:02 Detrol [place] PO 4 mg DAILY MARCELINO Administration - Lab Result Fish Bone Diagrams: 08/02/18 17:40 08/03/18 04:50 - Additional Planning My Orders: My Active Orders 08/03/18 12:00 Phenazopyridine [Pyridium] 100 mg PO TIDWM Subjective - Subjective Patient Reports: Feeling Better, Resting Comfortably, Other (Pain in pelvis and burning with urination.) Objective Vital Signs: Vital Signs - 24 hr 08/02/18 08/02/18 08/02/18 17:23 18:07 19:23 Temperature 98.3 C H 37.4 C Heart Rate 125 H 118 H 112 H Heart Rate [ Brachial] Respiratory 32 H 14 16 Rate Blood Pressure 166/98 H 141/67 H 137/68 H Blood Pressure [Left Brachial artery] Blood Pressure [Right Brachial artery] O2 Saturation 99 96 96 08/02/18 08/02/18 08/02/18 19:46 20:08 20:30 Temperature Heart Rate 109 H 107 H 106 H Heart Rate [ Brachial] Respiratory 17 20 14 Rate Blood Pressure 123/68 134/70 H 118/102 H Blood Pressure [Left Brachial artery] Blood Pressure [Right Brachial artery] O2 Saturation 93 93 97 08/02/18 08/02/18 08/02/18 21:03 22:07 23:48 Temperature 36.8 C 37.3 C Heart Rate 101 H Heart Rate [ 106 H 98 Brachial] Respiratory 14 16 21 Rate Blood Pressure 132/77 H Blood Pressure 119/87 H [Left Brachial artery] Blood Pressure 128/56 L [Right Brachial artery] O2 Saturation 94 94 97 08/03/18 08/03/18 04:24 08:08 Temperature 36.8 C 37.0 C Heart Rate Heart Rate [ 92 79 Brachial] Respiratory 19 18 Rate Blood Pressure Blood Pressure 143/84 H 118/67 [Left Brachial artery] Blood Pressure [Right Brachial artery] O2 Saturation 97 97 Oxygen O2 Source Room air Oxygen Flow Rate 3 I&O (Last 24 Hrs): Intake and Output Totals x24h 08/01/18 08/02/18 08/03/18 23:59 23:59 23:59 Intake Total 600 1321.250 Output Total 150 775 Balance 450 546.250 General: Alert, Oriented x3 HEENT: Other (Dry oral mucosa) Neck: Supple, No JVD Neuro: Non Focal Cardiovascular: Regular rate, No murmurs Respiratory: No respiratory distress, Breath sounds nml Abdomen: Soft, No tenderness, Other (Large ventral hernia) Extremities: No edema - Results Results: Laboratory Results WBC 14.3 x10^3/uL (4.8-10.8) H 08/02/18 17:40 RBC 4.28 10^6/uL (4.20-5.40) 08/02/18 17:40 Hgb 12.6 g/dL (12.0-16.0) 08/02/18 17:40 Hct 37.8 % (37.0-47.0) 08/02/18 17:40 MCV 88.3 fL (81.0-99.0) 08/02/18 17:40 MCH 29.4 pg (27.0-31.0) 08/02/18 17:40 MCHC 33.3 g/dL (32.0-36.0) 08/02/18 17:40 RDW 13.3 % (12.0-15.0) 08/02/18 17:40 Plt Count 228 10^3/uL (130-450) 08/02/18 17:40 MPV 8.1 fL (7.9-10.8) 08/02/18 17:40 Neut # (Auto) 13.1 10^3/uL (1.5-6.6) H 08/02/18 17:40 Lymph # (Auto) 0.3 10^3/uL (1.5-3.5) L 08/02/18 17:40 [place] # (Auto) 0.7 10^3/uL (0.0-1.0) 08/02/18 17:40 Eos # (Auto) 0.0 10^3/uL (0.0-0.7) 08/02/18 17:40 Baso # (Auto) 0.0 10^3/uL (0.0-0.1) 08/02/18 17:40 Absolute Nucleated RBC 0.00 x10^3/uL 08/02/18 17:40 Nucleated RBC % 0.0 /100WBC 08/02/18 17:40 PT 22.4 secs (9.9-12.6) H 08/03/18 04:50 INR 2.0 (0.8-1.2) H 08/03/18 04:50 VBG pH 7.435 (7.31-7.41) H 08/02/18 17:40 VBG pCO2 42.9 mmHg (41-51) 08/02/18 17:40 VBG pO2 33.1 mmHg (25-47) 08/02/18 17:40 VBG HCO3 28.2 mmol/L (23-28) H 08/02/18 17:40 VBG Total CO2 29.5 mmol/L (24-29) H 08/02/18 17:40 VBG O2 Saturation 68.8 % (60-80) 08/02/18 17:40 VBG Base Excess 3.5 mmol/L (-2 - +2) H 08/02/18 17:40 Sodium 138 mmol/L (135-145) 08/03/18 04:50 Potassium 3.0 mmol/L (3.5-5.0) L 08/03/18 04:50 Chloride 99 mmol/L (101-111) L 08/03/18 04:50 Carbon Dioxide 26 mmol/L (21-32) 08/03/18 04:50 Anion Gap 13.0 (6-13) 08/03/18 04:50 BUN 32 mg/dL (6-20) H 08/03/18 04:50 Creatinine 1.0 mg/dL (0.4-1.0) 08/03/18 04:50 Estimated GFR (MDRD) 55 (>89) L 08/03/18 04:50 Glucose 120 mg/dL (70-100) H 08/03/18 04:50 Glycated Hemoglobin 6.4 % (4.6-6.2) H 08/02/18 17:40 Estim Average Glucose 137 (70-100) H 08/02/18 17:40 Lactic Acid 0.8 mmol/L (0.5-2.2) 08/02/18 17:40 Calcium 8.5 mg/dL (8.5-10.3) 08/03/18 04:50 Magnesium 1.5 mg/dL (1.7-2.8) L 08/02/18 17:40 Total Bilirubin 1.0 mg/dL (0.2-1.0) 08/02/18 17:40 AST 26 IU/L (10-42) 08/02/18 17:40 ALT 25 IU/L (10-60) 08/02/18 17:40 Alkaline Phosphatase 79 IU/L (42-121) 08/02/18 17:40 Troponin I < 0.04 ng/mL (<0.49) 08/02/18 17:40 Total Protein 7.4 g/dL (6.7-8.2) 08/02/18 17:40 Albumin 3.6 g/dL (3.2-5.5) 08/02/18 17:40 Globulin 3.8 g/dL (2.1-4.2) 08/02/18 17:40 Albumin/Globulin Ratio 0.9 (1.0-2.2) L 08/02/18 17:40 Lipase 20 U/L (22-51) L 08/02/18 17:40 Urine Color YELLOW 08/02/18 19:20 Urine Clarity CLEAR (CLEAR) 08/02/18 19:20 Urine pH 5.5 PH (5.0-7.5) 08/02/18 19:20 Ur Specific [place] 1.020 (1.002-1.030) 08/02/18 19:20 Urine Protein TRACE mg/dL (NEGATIVE) 08/02/18 19:20 Urine Glucose (UA) NEGATIVE mg/dL (NEGATIVE) 08/02/18 19:20 Urine Ketones 15 mg/dL (NEGATIVE) H 08/02/18 19:20 Urine Occult Blood MODERATE (NEGATIVE) H 08/02/18 19:20 Urine Nitrite POSITIVE (NEGATIVE) H 08/02/18 19:20 Urine Bilirubin NEGATIVE (NEGATIVE) 08/02/18 19:20 Urine Urobilinogen 0.2 (NORMAL) E.U./dL (NORMAL) 08/02/18 19:20 Ur Leukocyte Esterase SMALL (NEGATIVE) H 08/02/18 19:20 Urine RBC 6-10 /HPF (0-5) H 08/02/18 19:20 Urine WBC >25 /HPF (0-5) H 08/02/18 19:20 Ur Squamous Epith Cells FEW Squamous (<= Few) 08/02/18 19:20 Urine Bacteria Many /HPF (None Seen) H 08/02/18 19:20 Ur Microscopic Review INDICATED 08/02/18 19:20 Urine Culture Comments INDICATED 08/02/18 19:20 - Procedures Procedures: Procedures VENOUS CATHETERIZATION NEC (02/15/14) Sepsis Event Note (H) - Evaluation Current Stage of Sepsis: Ruled out
[2018-08-03] MEDS: PHENAZOPYRIDINE 100 MG TABLET PO SCH ×2 (12:37→18:22)
[2018-08-03] MEDS ORDERED: WARFARIN 5 MG TABLET PO SCH (13:00)
[2018-08-03] MEDS: FERROUS GLUCONATE 324 MG TABLET PO SCH (14:17)
[2018-08-03] MEDS: CYCLOBENZAPRINE 10 MG TABLET PO SCH ×2 (14:19→22:23)
[2018-08-03] MEDS: DOCUSATE SODIUM 100 MG CAPSULE PO SCH (14:19)
[2018-08-03] MEDS: HYDROmorphone 2 MG/ML VIAL IVP PRN ×2 (14:32→22:28)
[2018-08-03] MEDS ORDERED: IOVERSOL 320 100 ML VIAL IVP ONE ×2 (19:20→22:22)
[2018-08-03] MEDS ORDERED: IOVERSOL 320 50 ML VIAL ONE (21:13)
[2018-08-03] MEDS: SODIUM CHLORIDE FLUSH 0.9% 10 ML SYRINGE IVP PRN (22:29)
[2018-08-04] MEDS: AZTREONAM 1 GM in SODIUM CHLORIDE 0.9% MINIBAG 100 ML IV SCH ×3 (00:01→12:43)
[2018-08-04] MEDS: SODIUM CHLORIDE FLUSH 0.9% 10 ML SYRINGE IVP SCH ×2 (00:15→08:24)
--- NOTE | 2018-08-04 01:33 | CT Report ---
Reason: UTI, eval for obstruction Procedure Date: 08/03/2018 Accession Number: [id number] / [id number] Procedure: CT - Abdomen/Pelvis W CPT Code: FULL RESULT: EXAM: CT ABDOMEN AND PELVIS EXAM DATE: 08/03/2018 10:25 PM. CLINICAL HISTORY: UTI, eval for obstruction. COMPARISONS: None. TECHNIQUE: Routine helical CT imaging was performed through the abdomen and pelvis. IV contrast: [id number] 100ML. Enteric contrast: No. Reconstructions: Coronal and sagittal. In accordance with CT protocol optimization, one or more of the following dose reduction techniques were utilized for this exam: automated exposure control, adjustment of mA and/or KV based on patient size, or use of iterative reconstructive technique. FINDINGS: Lung Bases: Unremarkable. Liver: Pneumobilia. No focal liver lesion. Gallbladder/Bile Ducts: Postoperative changes of cholecystectomy. Spleen: Normal. Pancreas: Normal. Adrenal Glands: Normal. Kidneys: Left kidney appears unremarkable. There is right hydronephrosis and hydroureter, with delayed uptake of contrast relative to the left kidney and perinephric stranding. Peritoneal Cavity/Bowel: Large anterior abdominal wall hernia, containing multiple nonobstructed loops of large and small bowel. No ascites. No adenopathy. Pelvic Organs: Image quality in the pelvis is limited by streak artifact from bilateral hip replacements. There may be a right ureterovesicular junction calculus present. The calcification in question measures 4 mm. Vasculature: No aneurysms or other significant abnormality. Bones: Degenerative and postsurgical changes. Other: None. IMPRESSION: Right hydronephrosis and hydroureter, with evidence of obstructive uropathy. Questionable 4 mm right ureterovesicular junction calculus. Large anterior abdominal wall hernia, containing nonobstructed bowel loops. RADIA
[2018-08-04] MEDS: HYDROmorphone 2 MG/ML VIAL IVP PRN ×2 (05:09→14:38)
[2018-08-04 05:41] LABS: CALCIUM 8.1 mg/dL (8.5-10.3); CREATININE 0.7 mg/dL (0.4-1.0); HGB - HEMOGLOBIN 10.8 g/dL (12.0-16.0); MEAN CORPUSCULAR HEMOGLOBIN 30.1 pg (27.0-31.0); MEAN CORPUSCULAR HGB CONC 33.9 g/dL (32.0-36.0); MEAN PLATELET VOLUME 8.2 fL (7.9-10.8); RED BLOOD COUNT 3.59 10^6/uL (4.20-5.40); RED CELL DISTRIBUTION WIDTH 13.7 % (12.0-15.0); WHITE BLOOD COUNT 7.7 x10^3/uL (4.8-10.8)
[2018-08-04 05:47] LABS: INR 1.7 (0.8-1.2); PT - PROTHROMBIN TIME 19.5 secs (9.9-12.6)
[2018-08-04] MEDS: LEVOTHYROXINE 100 MCG TABLET PO SCH (06:38)
[2018-08-04] MEDS: CYCLOBENZAPRINE 10 MG TABLET PO SCH ×2 (06:38→13:43)
[2018-08-04] MEDS: PREGABALIN 25 MG CAPSULE PO SCH ×2 (06:38→13:43)
--- NOTE | 2018-08-04 07:38 | PROVIDER PROGRESS NOTE ---
Assessment/Plan - Problem List (5) Metabolic encephalopathy Assessment/Plan: She had another episode last night, when she spoiked a fever. Tylenol, admisnistered. Continue iv hydration and treating the underlying infection. (6) Hypertension Qualifiers: Hypertension type: essential hypertension Qualified Code(s): I10 - Essential (primary) hypertension - Current Meds Current Meds: Current Medications Generic Name Dose Route Start Last Admin Trade Name Freq PRN Reason Stop Dose Admin Acetaminophen 650 mg 08/02/18 20:16 08/03/18 18:22 Tylenol PO 650 mg Q4HR PRN Administration Pain 1 to 4 Hydrocodone Bitart/Acetaminophen 2 tab 08/02/18 20:21 08/03/18 23:01 [place] 7.5/325 PO 2 tab Q4H PRN Administration PAIN Celecoxib 200 mg 08/03/18 09:00 08/03/18 08:59 Celebrex PO 200 mg DAILY MARCELINO Administration Cyclobenzaprine HCl 10 mg 08/03/18 14:00 08/04/18 06:38 Flexeril PO 10 mg TID MARCELINO Administration Docusate Sodium 100 mg 08/03/18 12:55 08/03/18 14:19 Colace 100mg Capsule PO 100 mg DAILY MARCELINO Administration Famotidine 20 mg 08/02/18 21:00 08/03/18 20:56 Pepcid PO 20 mg BID MARCELINO Administration Ferrous Gluconate 324 mg 08/03/18 13:00 08/03/18 14:17 Fergon PO 324 mg DAILY MARCELINO Administration Fluticasone Propionate 0 sprays 08/03/18 09:00 08/03/18 09:00 Flonase CROW 2 spr DAILY MARCELINO Administration Hydromorphone HCl 2 mg 08/03/18 12:09 08/04/18 05:09 Dilaudid (Vial) IVP 2 mg Q4H PRN Administration PAIN Aztreonam 1 gm/ Sodium 100 mls @ 200 mls/hr 08/03/18 00:00 08/04/18 07:12 Chloride IV Infused Q6HR MARCELINO Infusion Sodium Chloride 1,000 mls @ 125 mls/hr 08/02/18 21:00 08/04/18 01:30 Normal Saline 0.9% IV 125 mls/hr .Q8H MARCELINO Infusion Insulin Aspart 1 - 9 unit 08/03/18 08:00 08/03/18 20:57 Novolog SUBQ 3 unit 0800,1200,1700,2100 MARCELINO Administration Protocol Insulin Glargine 22 unit 08/02/18 21:00 08/03/18 20:57 Lantus Solostar SUBQ 22 unit QPM MARCELINO Administration Levothyroxine Sodium 200 mcg 08/03/18 07:00 08/04/18 06:38 Synthroid PO 200 mcg QDAC MARCELINO Administration Losartan Potassium 25 mg 08/03/18 09:00 08/03/18 09:03 Cozaar PO 25 mg DAILY MARCELINO Administration Montelukast Sodium 10 mg 08/03/18 09:00 08/03/18 09:01 Singulair PO 10 mg DAILY MARCELINO Administration Morphine Sulfate 2 mg 08/02/18 20:16 08/02/18 22:21 Morphine IVP 2 mg Q2H PRN Administration Pain 8 to 10 Phenazopyridine HCl 100 mg 08/03/18 12:00 08/03/18 18:22 Pyridium PO 100 mg TIDWM MARCELINO Administration Polyethylene Glycol 17 gm 08/03/18 09:00 08/03/18 09:04 Miralax PO Not Given DAILY [facility] Potassium Chloride 10 meq 08/03/18 09:00 08/03/18 09:02 Micro-K PO 10 meq DAILY MARCELINO Administration Pregabalin 50 mg 08/02/18 22:00 08/04/18 06:38 Lyrica PO 50 mg TID MARCELINO Administration Sodium Chloride 10 ml 08/02/18 20:16 08/03/18 22:29 Normal Saline Flush 0.9% IVP 10 ml PRN PRN Administration NEEDED PER PROVIDER ORDERS Sodium Chloride 10 ml 08/03/18 01:00 08/04/18 00:15 Normal Saline Flush 0.9% IVP 10 ml 0100,0900,1700 MARCELINO Administration Warfarin Sodium 10 mg 08/03/18 13:00 08/03/18 14:18 Coumadin PO 10 mg MOTUTHFRSA MARCELINO Administration - Lab Result Fish Bone Diagrams: 08/04/18 05:25 08/04/18 05:25 - Additional Planning My Orders: My Active Orders 08/03/18 12:00 Phenazopyridine [Pyridium] 100 mg PO TIDWM 08/03/18 12:09 HYDROmorphone (VIAL) [Dilaudid (Vial)] 2 mg IVP Q4H PRN 08/03/18 12:55 Docusate Sodium 100Mg Capsule [Colace 100Mg Capsule] 100 mg PO DAILY 08/03/18 13:00 Ferrous Gluconate [Fergon] 324 mg PO DAILY Warfarin [Coumadin] 10 mg PO MOTUTHFRSA 08/03/18 14:00 Cyclobenzaprine [Flexeril] 10 mg PO TID 08/03/18 19:29 CULTURE, BLOOD #1 [RM] Stat 08/03/18 20:06 CULTURE, BLOOD #2 [RM] Stat 08/03/18 Dinner Carb-controlled Diet [DIET] 08/04/18 09:00 Cholecalciferol [Vitamin D3] 5,000 unit PO DAILY Fexofenadine [Latoya] 180 mg PO DAILY Insulin Glargine [Lantus Solostar] 22 unit SUBQ DAILY Multivitamin [Theragran] 1 tab PO DAILY Tolterodine [Detrol LA] 4 mg PO DAILY 08/04/18 13:00 Warfarin [Coumadin] 7.5 mg PO SuWe 08/05/18 05:00 PT WITH INR [COAG] DAILYLAB 08/06/18 05:00 PT WITH INR [COAG] DAILYLAB 08/08/18 07:00 Levothyroxine [Synthroid] 400 mcg PO WRIGHT@0700 Objective Vital Signs: Vital Signs - 24 hr 08/03/18 08/03/18 08/03/18 08:08 12:00 15:45 Temperature 37.0 C 37.1 C 37.5 C Heart Rate Heart Rate [ 79 95 Brachial] Respiratory 18 18 18 Rate Blood Pressure 118/67 127/68 [Left Brachial artery] Blood Pressure [Right Brachial artery] O2 Saturation 97 97 08/03/18 08/03/18 08/04/18 18:16 19:01 00:26 Temperature 39.5 C H 39.3 C H 38.5 C H Heart Rate Heart Rate [ 112 H 116 H 106 H Brachial] Respiratory 20 19 Rate Blood Pressure 122/84 H [Left Brachial artery] Blood Pressure 137/114 H [Right Brachial artery] O2 Saturation 93 92 08/04/18 08/04/18 05:09 06:16 Temperature 37.6 C H 37.6 C H Heart Rate 97 Heart Rate [ 97 Brachial] Respiratory 19 Rate Blood Pressure [Left Brachial artery] Blood Pressure 143/61 H [Right Brachial artery] O2 Saturation 92 Oxygen O2 Source Room air Oxygen Flow Rate 3 I&O (Last 24 Hrs): Intake and Output Totals x24h 08/02/18 08/03/18 08/04/18 23:59 23:59 23:59 Intake Total 600 4231.250 206.25 Output Total 150 1975 850 Balance 450 2256.250 -643.75 - Results Results: Laboratory Results WBC 7.7 x10^3/uL (4.8-10.8) 08/04/18 05:25 RBC 3.59 10^6/uL (4.20-5.40) L 08/04/18 05:25 Hgb 10.8 g/dL (12.0-16.0) L 08/04/18 05:25 Hct 32.0 % (37.0-47.0) L 08/04/18 05:25 MCV 89.0 fL (81.0-99.0) 08/04/18 05:25 MCH 30.1 pg (27.0-31.0) 08/04/18 05:25 MCHC 33.9 g/dL (32.0-36.0) 08/04/18 05:25 RDW 13.7 % (12.0-15.0) 08/04/18 05:25 Plt Count 187 10^3/uL (130-450) 08/04/18 05:25 MPV 8.2 fL (7.9-10.8) 08/04/18 05:25 Neut # (Auto) 13.1 10^3/uL (1.5-6.6) H 08/02/18 17:40 Lymph # (Auto) 0.3 10^3/uL (1.5-3.5) L 08/02/18 17:40 [place] # (Auto) 0.7 10^3/uL (0.0-1.0) 08/02/18 17:40 Eos # (Auto) 0.0 10^3/uL (0.0-0.7) 08/02/18 17:40 Baso # (Auto) 0.0 10^3/uL (0.0-0.1) 08/02/18 17:40 Absolute Nucleated RBC 0.00 x10^3/uL 08/02/18 17:40 Nucleated RBC % 0.0 /100WBC 08/02/18 17:40 PT 19.5 secs (9.9-12.6) H 08/04/18 05:25 INR 1.7 (0.8-1.2) H 08/04/18 05:25 VBG pH 7.435 (7.31-7.41) H 08/02/18 17:40 VBG pCO2 42.9 mmHg (41-51) 08/02/18 17:40 VBG pO2 33.1 mmHg (25-47) 08/02/18 17:40 VBG HCO3 28.2 mmol/L (23-28) H 08/02/18 17:40 VBG Total CO2 29.5 mmol/L (24-29) H 08/02/18 17:40 VBG O2 Saturation 68.8 % (60-80) 08/02/18 17:40 VBG Base Excess 3.5 mmol/L (-2 - +2) H 08/02/18 17:40 Sodium 133 mmol/L (135-145) L 08/04/18 05:25 Potassium 3.8 mmol/L (3.5-5.0) 08/04/18 05:25 Chloride 100 mmol/L (101-111) L 08/04/18 05:25 Carbon Dioxide 23 mmol/L (21-32) 08/04/18 05:25 Anion Gap 10.0 (6-13) 08/04/18 05:25 BUN 25 mg/dL (6-20) H 08/04/18 05:25 Creatinine 0.7 mg/dL (0.4-1.0) 08/04/18 05:25 Estimated GFR (MDRD) 83 (>89) L 08/04/18 05:25 Glucose 246 mg/dL (70-100) H 08/04/18 05:25 Glycated Hemoglobin 6.4 % (4.6-6.2) H 08/02/18 17:40 Estim Average Glucose 137 (70-100) H 08/02/18 17:40 Lactic Acid 0.7 mmol/L (0.5-2.2) 08/03/18 19:29 Calcium 8.1 mg/dL (8.5-10.3) L 08/04/18 05:25 Magnesium 1.5 mg/dL (1.7-2.8) L 08/02/18 17:40 Total Bilirubin 1.0 mg/dL (0.2-1.0) 08/02/18 17:40 AST 26 IU/L (10-42) 08/02/18 17:40 ALT 25 IU/L (10-60) 08/02/18 17:40 Alkaline Phosphatase 79 IU/L (42-121) 08/02/18 17:40 Troponin I < 0.04 ng/mL (<0.49) 08/02/18 17:40 Total Protein 7.4 g/dL (6.7-8.2) 08/02/18 17:40 Albumin 3.6 g/dL (3.2-5.5) 08/02/18 17:40 Globulin 3.8 g/dL (2.1-4.2) 08/02/18 17:40 Albumin/Globulin Ratio 0.9 (1.0-2.2) L 08/02/18 17:40 Lipase 20 U/L (22-51) L 08/02/18 17:40 TSH 0.21 uIU/mL (0.34-5.60) L 08/04/18 05:25 Urine Color YELLOW 08/02/18 19:20 Urine Clarity CLEAR (CLEAR) 08/02/18 19:20 Urine pH 5.5 PH (5.0-7.5) 08/02/18 19:20 Ur Specific [place] 1.020 (1.002-1.030) 08/02/18 19:20 Urine Protein TRACE mg/dL (NEGATIVE) 08/02/18 19:20 Urine Glucose (UA) NEGATIVE mg/dL (NEGATIVE) 08/02/18 19:20 Urine Ketones 15 mg/dL (NEGATIVE) H 08/02/18 19:20 Urine Occult Blood MODERATE (NEGATIVE) H 08/02/18 19:20 Urine Nitrite POSITIVE (NEGATIVE) H 08/02/18 19:20 Urine Bilirubin NEGATIVE (NEGATIVE) 08/02/18 19:20 Urine Urobilinogen 0.2 (NORMAL) E.U./dL (NORMAL) 08/02/18 19:20 Ur Leukocyte Esterase SMALL (NEGATIVE) H 05/06/19 19:20 Urine RBC 6-10 /HPF (0-5) H 08/02/18 19:20 Urine WBC >25 /HPF (0-5) H 08/02/18 19:20 Ur Squamous Epith Cells FEW Squamous (<= Few) 08/02/18 19:20 Urine Bacteria Many /HPF (None Seen) H 08/02/18 19:20 Ur Microscopic Review INDICATED 08/02/18 19:20 Urine Culture Comments INDICATED 08/02/18 19:20 - Procedures Procedures: Procedures VENOUS CATHETERIZATION NEC (02/15/14) Sepsis Event Note (H) - Evaluation Current Stage of Sepsis: Ruled out
[2018-08-04] MEDS ORDERED: LEVOTHYROXINE 100 MCG TABLET PO SCH (07:48)
[2018-08-04] MEDS: INSULIN ASPART 300 UNIT/3 ML PEN SUBQ SCH ×2 (08:18→12:24)
[2018-08-04] MEDS: HYDROcod/ACETAM 7.5 MG/325 MG TABLET PO PRN ×2 (08:19→12:46)
[2018-08-04] MEDS: FERROUS GLUCONATE 324 MG TABLET PO SCH (08:21)
[2018-08-04] MEDS: CELECOXIB 100 MG CAPSULE PO SCH (08:21)
[2018-08-04] MEDS: POTASSIUM CHLORIDE 10 MEQ CAPSULE PO SCH (08:21)
[2018-08-04] MEDS: DOCUSATE SODIUM 100 MG CAPSULE PO SCH (08:22)
[2018-08-04] MEDS: LOSARTAN 50 MG TABLET PO SCH (08:22)
[2018-08-04] MEDS: MONTELUKAST 10 MG TABLET PO SCH (08:22)
[2018-08-04] MEDS: PHENAZOPYRIDINE 100 MG TABLET PO SCH ×2 (08:22→12:46)
[2018-08-04] MEDS: FLUTICASONE NASAL SPRAY NAS SCH (08:23)
[2018-08-04] MEDS: FAMOTIDINE 20 MG TABLET PO SCH (08:23)
[2018-08-04] MEDS: POLYETHYLENE GLYCOL 3350 17 GM PACKET PO SCH (08:23)
[2018-08-04] MEDS ORDERED: MULTIVITAMIN TABLET PO SCH (09:00)
[2018-08-04] MEDS ORDERED: TOLTERODINE LA 2 MG CAPSULE PO SCH (09:00)
[2018-08-04] MEDS ORDERED: FEXOFENADINE 60 MG TABLET PO SCH (09:00)
[2018-08-04] MEDS ORDERED: CHOLECALCIFEROL 5,000 UNIT CAPSULE PO SCH (09:00)
[2018-08-04] MEDS ORDERED: INSULIN GLARGINE 300 UNIT/3 ML PEN SUBQ SCH (09:00)
[2018-08-04] MEDS: SODIUM CHLORIDE 0.9% 1,000 ML IV SCH (09:27)
[2018-08-04] MEDS ORDERED: SACCHAROMYCES BOULARDII 250 MG CAPSULE PO SCH (10:25)
[2018-08-04 11:45] VITALS: BP 99/51
[2018-08-04] MEDS ORDERED: LOSARTAN 50 MG TABLET PO SCH (12:03)
[2018-08-04] MEDS ORDERED: WARFARIN 2.5 MG TABLET PO ONE (12:49)
--- NOTE | 2018-08-04 12:52 | DISCHARGE SUMMARY ---
"Discharge Summary Admit Date: 08/02/18 Discharge Date: 08/04/18 Discharging Provider: Dr Zoe Engle Primary Care Provider: Dr Sarah Marshall Code Status: Attempt Resuscitation Condition at Discharge: Serious Discharge Disposition: 02 Transfer Acute Care Hosp Discharge Facility Name: [facility] - DIAGNOSES Admission Diagnoses: (1) Mental status change (2) UTI (urinary tract infection) (3) Dehydration (4) Hypokalemia (5) Hypothyroidism (6) History of Hypertension (7) IDDM (insulin dependent diabetes mellitus) (8) History of reactive airway disease Discharge Diagnoses with Status of Each Condition: 1) E. coli bacteremia - blood cx turned positive from first set drawn in ER, sensitivities are pending. 2) Pyelonephritis of right kidney - seen on CT abdomen/pelvis 3) Hydronephrosis due to obstruction of ureter - seen on CT abdomen/pelvis 4) Kidney stone on right side - seen on CT abdomen/pelvis. She was accepted for transfer to [facility], on the Hospitalist's service and Urology for consult for stenting. 5) Metabolic encephalopathy - secondary to fever and infection, improved when she is afebrile. 6) Dehydration - iv hydration continues. 7) IDDM - patient on carb-controlled diet and ss Insulin at the time of transfer 8) Hypothyroidism - her a.m. labs showed a very low TSH, indicating excessive Levothyroxine dosing. 9) Hx of HTN - her Losartan treatment is ordered, with hold parameters if BP low. 10) Hypokalemia - being replaced. 11) Hyponatremia - rlated to mildly elevted serum glucose. 12) Hx of reactive airway disease - prn inhalers ordered. 13) Leg edema due to chronic cellulitis - edema worsened slightly after the 1.5 days of 1v hydration. 14) Multiple drug and antibiotic allergies - see list - HPI History of Present Illness: This is a 67-year-old white female, history of IDDM, prior UTIs, chronic cellulitis on daily Pen-Vee K, who was brought in to the ER due to confusion, shortness of breath with desaturations to 70% but work-up revealed that she had an abnormal urinalysis with positive nitrites and many bacteria and admitted for a UTI. A chest x-ray was unremarkable and her saturations improved. She was started on empiric IV antibiotics for the UTI and management of dehydration. After fluid administration started in the ER, her altered mental status improved quickly. - CONSULTS | PROCEDURES Consultations: None - HOSPITAL COURSE Hospital Course: The patient was started on IV saline hydration, a carb controlled diet, sliding scale insulin coverage and empiric IV antibiotics using Aztreonam (due to her multiple drug and antibiotic allergies). Her other home medications were contin ued. The urine culture became positive in less than a day, growing E. coli. On her second day the blood culture turned positive, also growing E. coli. She had a another fever spike to 39.5 C and was confused again, which improved as she defervesced. A CT of the abdomen and pelvis was done and this showed right sided perinephric stranding consistent with pyelonephritis, right-sided hydronephrosis, a dilated right-sided ureter and a 4 mm stone at the junction of the ureter and bladder. I recommended transfer for Urology management. The patient was accepted in transfer by the Hospitalist service at [facility] in [place] and the Urology team were informed of her findings and are ready to consult for stenting. She was transferred in serious condition. Blood pressure 99/50, heart rate 80- 90 in sinus rhythm, temperature of 37.7 C, room air saturation of 96%. Her physical exam is unremarkable except for obesity, a chronic abdominal wall hernia and 2+ leg edema which is also chronic. - ALLERGIES Allergies/Adverse Reactions: Allergies Allergy/AdvReac Type Severity Reaction Status Date / Time aspirin Allergy Severe Respiratory Verified 04/24/16 02:04 cefamandole nafate * Allergy Severe Respiratory Verified 04/24/16 02:04 [From Mandol] Heparin Analogues Allergy Severe Respiratory Verified 04/24/16 02:04 meperidine HCl * Allergy Severe Respiratory Verified 04/24/16 02:04 [From Demerol] naproxen Allergy Severe Respiratory Verified 04/24/16 02:04 rofecoxib [From Vioxx] Allergy Severe Respiratory Verified 04/24/16 02:04 venom-honey bee Allergy Severe Respiratory Verified 08/03/18 11:24 venom-wasp Allergy Severe Respiratory Verified 08/03/18 11:24 zoster vaccine live Allergy Severe Respiratory Verified 04/24/16 02:04 promethazine HCl * Allergy Respiratory Verified 04/24/16 02:04 [From Phenergan] Dndmskh-Tkm-Ion Reductase Allergy Respiratory Verified 04/24/16 02:04 Inhibitor amoxicillin trihydrate * AdvReac Intermediate Cramps Verified 04/24/16 02:04 [From Augmentin] erythromycin base AdvReac Intermediate Dizziness Verified 04/24/16 02:04 [Erythromycin Base] metformin AdvReac Intermediate Nausea Verified 04/24/16 02:04 potassium clavulanate * AdvReac Intermediate Cramps Verified 04/24/16 02:04 [From Augmentin] Sulfa (Sulfonamide AdvReac Intermediate Itching Verified 04/24/16 02:04 Antibiotics) levofloxacin [From Levaquin] AdvReac Mild Nausea Verified 04/24/16 02:04 cadexomer iodine * AdvReac Unknown Unknown Verified 04/24/16 02:04 [From Iodosorb] - MEDICATIONS Home Medications: Ambulatory Orders Medication Instructions Recorded Confirmed Albuterol Sulfate [Proair Hfa 2 puffs INH Q4H PRN 04/24/16 08/03/18 Inhaler] Celecoxib [Celebrex] 200 mg PO DAILY 04/24/16 08/03/18 Cyclobenzaprine [Flexeril] 10 mg PO TID 04/24/16 08/03/18 Fexofenadine HCl [Latoya Allergy] 180 mg PO DAILY 04/24/16 08/03/18 Fluticasone [Flonase] 2 spray CROW DAILY 04/24/16 08/03/18 Glipizide [Glucotrol Xl] 5 mg PO DAILY 04/24/16 08/03/18 Hydrocodone/Acetaminophen 2 tab PO Q4H PRN 04/24/16 08/03/18 [Hydrocodon-Acetaminoph 7.5-325] Insulin Lispro [Humalog Kwikpen 0 - 25 units SUBQ .SLIDINGSCALE PRN 04/24/16 08/03/18 U-100] Levothyroxine Sodium [Synthroid] 200 mcg PO MOTUWETHFRSA@0700 04/24/16 08/03/18 Losartan [Cozaar] 25 mg PO DAILY 04/24/16 08/03/18 Montelukast [Singulair] 10 mg PO DAILY 04/24/16 08/03/18 Pregabalin [Lyrica] 50 mg PO TID 04/24/16 08/03/18 Warfarin Sodium 10 mg PO MOTUTHFRSA 04/24/16 08/03/18 Cholecalciferol [Vitamin D3] 5,000 unit PO DAILY 08/03/18 08/03/18 Docusate Sodium [Doc-Q-Lace] 100 mg PO DAILY 08/03/18 08/03/18 Ferrous Gluconate [Iron] 240 mg PO DAILY 08/03/18 08/03/18 Insulin Degludec [Tresiba 55 units SUBQ DAILY 08/03/18 08/03/18 Flextouch U-100] Lactose-Reduced Food [Protein 414 ml PO BID 08/03/18 08/03/18 Nutritional Shake] Levothyroxine Sodium [Synthroid] 400 mcg PO WRIGHT@0700 08/03/18 08/03/18 Liraglutide [Victoza 2-Ty] 1.2 mg SUBQ QPM 08/03/18 08/03/18 Multivit-Min/Iron/Folic/Wgy785 1 each PO DAILY 08/03/18 08/03/18 [Hair, Skin and Nails Caplet] Multivitamin [Theragran] 1 each PO DAILY 08/03/18 08/03/18 Ondansetron HCl [Zofran] 4 mg PO TID PRN 08/03/18 08/03/18 Penicillin V Potassium 500 mg PO TID 08/03/18 08/03/18 Rabeprazole Sodium [Aciphex] 20 mg PO QDAC 08/03/18 08/03/18 Saccharomyces Boulardii [Florastor] 250 mg PO QPM 08/03/18 08/03/18 Tolterodine Tartrate [Detrol LA] 4 mg PO DAILY 08/03/18 08/03/18 Vitamin B Complex/Folic Acid 2,000 mcg PO DAILY 08/03/18 08/03/18 [B-Stress Capsules] Warfarin Sodium 7.5 mg PO SUWE 08/03/18 08/03/18 hydroCHLOROthiazide 50 mg PO DAILY 08/03/18 08/03/18 [Hydrochlorothiazide] - PHYSICAL EXAM AT DISCHARGE General Appearance: positive: No acute distress Eyes Bilateral: positive: Normal inspection ENT: positive: No signs of dehydration Neck: positive: Nml inspection Respiratory: positive: No respiratory distress, Breath sounds nml Cardiovascular: positive: Regular rate & rhythm, No murmur Abdomen: positive: Non-tender, Other (Large abdominal wall hernia) Skin: positive: Color nml Extremities: positive: Other (2+ edema to mid dai) Neurologic/Psychiatric: positive: Oriented x3, Other (Memory poor: could not remember that she was disoriented during fever) - LABS Result Diagrams: 08/04/18 05:25 08/04/18 05:25 - DIAGNOSTIC IMAGING Diagnostic Imaging Results: Final report reviewed Diagnostic Imaging Results Comments: R sided perinephric stranding R sided hydronephrosis R sided 4mm stone at ureterovesicle junction - TIME SPENT Time Spent in Discharge (Minutes): 60"
--- NOTE | 2018-08-04 12:53 | Discharge Plan ---
Discharge Plan Disposition: 02 Transfer Acute Care Hosp Condition: Serious Diet: Diabetic No Smoking: If you smoke, Please STOP! Call for help. Follow-up with: Sarah Fuentes MD [Primary Care Provider] -
[2018-08-04] MEDS ORDERED: WARFARIN 5 MG TABLET PO SCH (13:00)
[2018-08-04] MEDS: SODIUM CHLORIDE FLUSH 0.9% 10 ML SYRINGE IVP PRN (14:39)
[2018-08-05] MEDS ORDERED: LEVOTHYROXINE 100 MCG TABLET PO SCH (07:00)
[2018-08-08] MEDS ORDERED: LEVOTHYROXINE 100 MCG TABLET PO SCH (07:00)
== END 2018-08-04 15:54 | disposition short-term general hospital (02) | DRG 689 ==
LOC: EDUNIT# → ED 17:16 → MS2 20:16
PROVIDERS: ADMIT Family Medicine Sports Medicine; ATTEND Internal Medicine
DX: N10 Acute pyelonephritis (principal); N13.6 Pyonephrosis; G93.41 Metabolic encephalopathy; E87.1 Hypo-osmolality and hyponatremia; I10 Essential (primary) hypertension; E78.00 Pure hypercholesterolemia, unspecified; Z86.718 Personal history of other venous thrombosis and embolism; G47.30 Sleep apnea, unspecified; E11.51 Type 2 diabetes mellitus with diabetic peripheral angiopathy without gangrene; E11.65 Type 2 diabetes mellitus with hyperglycemia; E03.9 Hypothyroidism, unspecified; M19.90 Unspecified osteoarthritis, unspecified site; M06.9 Rheumatoid arthritis, unspecified; Z90.49 Acquired absence of other specified parts of digestive tract; Z96.659 Presence of unspecified artificial knee joint; Z90.710 Acquired absence of both cervix and uterus; B96.20 Unspecified Escherichia coli [E. coli] as the cause of diseases classified elsewhere; E86.0 Dehydration; Z79.4 Long term (current) use of insulin; E87.6 Hypokalemia; J45.909 Unspecified asthma, uncomplicated; E66.9 Obesity, unspecified; Z68.39 Body mass index [BMI] 39.0-39.9, adult; K43.9 Ventral hernia without obstruction or gangrene; Z88.7 Allergy status to serum and vaccine; Z88.6 Allergy status to analgesic agent; Z88.1 Allergy status to other antibiotic agents; Z91.030 Bee allergy status; Z79.02 Long term (current) use of antithrombotics/antiplatelets; R09.02 Hypoxemia; Z66 Do not resuscitate; R41.0 Disorientation, unspecified
CPT/HCPCS: 36415; 51701; 71045; 74177; 80048; 80053; 81001; 82365; 82803; 83036; 83605; 83690; 83735; 84439; 84443; 84481; 84484; 85025; 85027; 85610; 87040; 87077; 87086; 87181; 93005; 94640; 96365; 96367; 96375; 99284; A9270; J1170; J1815; J2270; J3370; Q9967; S0073; 81003

== ENCOUNTER 2018-11-13 12:52 | Emergency (ER) | payer MEDICARE, BC, OTHER ==
[2018-11-13 12:58] VITALS: BP 150/104
--- NOTE | 2018-11-13 13:13 | ED Physician Documentation ---
PD HPI SKIN - Stated complaint Stated Complaint: S/P SURGERY WOUND COMPLICATION - Chief complaint Chief Complaint: Ext Problem - History obtained from History obtained from: Patient - History of Present Illness Timing - onset: Today (she had cyst removed from left lower leg a month ago, and had it open and drain fluid. Put on abx by PCP and seemed improved some. Draining again this morning. Not purulent, just thicker clear yellow.) Timing - details: Abrupt onset (recurrently this morning.) Location: LLE Quality / character: Swelling (chronic lymphedema of legs.), Draining. No: Itchy, Painful, Discolored Recently seen: Clinic, Surgery (cyst removal at that area (lymphatic cyst?)) Review of Systems Constitutional: denies: Fever, Chills, Myalgias GI: denies: Nausea, Vomiting Neurologic: denies: Focal weakness, Numbness PD PAST MEDICAL HISTORY - Past Medical History Cardiovascular: Hypertension, High cholesterol, Peripheral Vascular Disease, Deep vein thrombosis Respiratory: Sleep apnea Neuro: None Endocrine/Autoimmune: Type 2 diabetes, HyPOthyroidism GI: None [employer]: None : Other HEENT: Dental implants Psych: None Musculoskeletal: Osteoarthritis, Rheumatoid arthritis Derm: Other drug resistant infections - Past Surgical History Past Surgical History: Yes General: Cholecystectomy, Other Ortho: Knee replacement, Arthroscopic surgery, Carpal Tunnel surgery, Other /[employer]: section, Hysterectomy HEENT: Tonsil/Adenoidectomy - Present Medications Home Medications: Ambulatory Orders Medication Instructions Recorded Confirmed Albuterol Sulfate [Proair Hfa 2 puffs INH Q4H PRN 04/24/16 08/03/18 Inhaler] Celecoxib [Celebrex] 200 mg PO DAILY 04/24/16 08/03/18 Cyclobenzaprine [Flexeril] 10 mg PO TID 04/24/16 08/03/18 Fexofenadine HCl [Latoya Allergy] 180 mg PO DAILY 04/24/16 08/03/18 Fluticasone [Flonase] 2 spray CROW DAILY 04/24/16 08/03/18 Glipizide [Glucotrol Xl] 5 mg PO DAILY 04/24/16 08/03/18 Hydrocodone/Acetaminophen 2 tab PO Q4H PRN 04/24/16 08/03/18 [Hydrocodon-Acetaminoph 7.5-325] Insulin Lispro [Humalog Kwikpen 0 - 25 units SUBQ .SLIDINGSCALE PRN 04/24/16 08/03/18 U-100] Levothyroxine Sodium [Synthroid] 200 mcg PO MOTUWETHFRSA@0700 04/24/16 08/03/18 Losartan [Cozaar] 25 mg PO DAILY 04/24/16 08/03/18 Montelukast [Singulair] 10 mg PO DAILY 04/24/16 08/03/18 Pregabalin [Lyrica] 50 mg PO TID 04/24/16 08/03/18 Warfarin Sodium 10 mg PO MOTUTHFRSA 04/24/16 08/03/18 Cholecalciferol [Vitamin D3] 5,000 unit PO DAILY 08/03/18 08/03/18 Docusate Sodium [Doc-Q-Lace] 100 mg PO DAILY 08/03/18 08/03/18 Ferrous Gluconate [Iron] 240 mg PO DAILY 08/03/18 08/03/18 Insulin Degludec [Tresiba 55 units SUBQ DAILY 08/03/18 08/03/18 Flextouch U-100] Lactose-Reduced Food [Protein 414 ml PO BID 08/03/18 08/03/18 Nutritional Shake] Levothyroxine Sodium [Synthroid] 400 mcg PO WRIGHT@0700 08/03/18 08/03/18 Liraglutide [Victoza 2-Ty] 1.2 mg SUBQ QPM 08/03/18 08/03/18 Multivit-Min/Iron/Folic/Qcg447 1 each PO DAILY 08/03/18 08/03/18 [Hair, Skin and Nails Caplet] Multivitamin [Theragran] 1 each PO DAILY 08/03/18 08/03/18 Ondansetron HCl [Zofran] 4 mg PO TID PRN 08/03/18 08/03/18 Penicillin V Potassium 500 mg PO TID 08/03/18 08/03/18 Rabeprazole Sodium [Aciphex] 20 mg PO QDAC 08/03/18 08/03/18 Saccharomyces Boulardii [Florastor] 250 mg PO QPM 08/03/18 08/03/18 Tolterodine Tartrate [Detrol LA] 4 mg PO DAILY 08/03/18 08/03/18 Vitamin B Complex/Folic Acid 2,000 mcg PO DAILY 08/03/18 08/03/18 [B-Stress Capsules] Warfarin Sodium 7.5 mg PO SUWE 08/03/18 08/03/18 hydroCHLOROthiazide 50 mg PO DAILY 08/03/18 08/03/18 [Hydrochlorothiazide] Doxycycline Hyclate 100 mg PO BID #14 capsule 11/13/18 - Allergies Allergies/Adverse Reactions: Allergies Allergy/AdvReac Type Severity Reaction Status Date / Time aspirin Allergy Severe Respiratory Verified 11/13/18 12:58 cefamandole nafate * Allergy Severe Respiratory Verified 11/13/18 12:58 [From Mandol] Heparin Analogues Allergy Severe Respiratory Verified 11/13/18 12:58 meperidine HCl * Allergy Severe Respiratory Verified 11/13/18 12:58 [From Demerol] naproxen Allergy Severe Respiratory Verified 11/13/18 12:58 rofecoxib [From Vioxx] Allergy Severe Respiratory Verified 11/13/18 12:58 venom-honey bee Allergy Severe Respiratory Verified 11/13/18 12:58 venom-wasp Allergy Severe Respiratory Verified 11/13/18 12:58 zoster vaccine live Allergy Severe Respiratory Verified 11/13/18 12:58 promethazine HCl * Allergy Respiratory Verified 11/13/18 12:58 [From Phenergan] Gekalud-Oyg-Bxs Reductase Allergy Respiratory Verified 11/13/18 12:58 Inhibitor amoxicillin trihydrate * AdvReac Intermediate Cramps Verified 11/13/18 12:58 [From Augmentin] erythromycin base AdvReac Intermediate Dizziness Verified 11/13/18 12:58 [Erythromycin Base] metformin AdvReac Intermediate Nausea Verified 11/13/18 12:58 potassium clavulanate * AdvReac Intermediate Cramps Verified 11/13/18 12:58 [From Augmentin] Sulfa (Sulfonamide AdvReac Intermediate Itching Verified 11/13/18 12:58 Antibiotics) levofloxacin [From Levaquin] AdvReac Mild Nausea Verified 11/13/18 12:58 cadexomer iodine * AdvReac Unknown Unknown Verified 11/13/18 12:58 [From Iodosorb] - Social History Does the pt smoke?: No Smoking Status: Never smoker Does the pt drink ETOH?: Yes Does the pt have substance abuse?: No - Immunizations Immunizations are current?: Yes - POLST Patient has POLST: No POLST Status: DNR PD ED PE NORMAL - Vitals Vital signs reviewed: Yes - General General: Alert and oriented X 3, No acute distress, Well developed/nourished - Derm Derm: Normal color, Warm and dry - Extremities Extremities: Other (edema in both legs. Left lower leg with surgical wound mostly healed, with small area of dehiscence about 1 cm, and some yellow clear f luid drainage. Culture obtained. Mild redness at edges. ) Results - Vitals Vitals: Oxygen O2 Source Room air PD MEDICAL DECISION MAKING - ED course Complexity details: considered differential (will try to use wound vac to have continued drainage. It might be continued lymph drainage and not seroma. Consider infection though not obviously purulent. ), d/w patient Departure - Departure Disposition: 01 Home, Self Care Clinical Impression: Lymphatic edema Wound dehiscence, external operation Qualifiers: Encounter type: initial encounter Qualified Code(s): T81.31XA - Disruption of external operation (surgical) wound, not elsewhere classified, initial encounter Condition: Stable Record reviewed to determine appropriate education?: Yes Follow-Up: Sarah Fuentes MD [Primary Care Provider] - Carlos Patton MD [Physician No Access] - Prescriptions: Doxycycline Hyclate 100 mg PO BID #14 capsule Comments: Keep the wound VAC on to help promote drainage. Use doxycycline antibiotic for concern of staph type infection. Follow-up with your primary care on Thursday to see their culture results. I do not have access to those results. Follow-up with the orthopedist as well regarding ideas on ways to reduce or stop the ongoing presumed lymphatic drainage. Discharge Date/Time: 11/13/18 15:42
[2018-11-13] MEDS ORDERED: DOXYCYCLINE 100 MG TABLET PO STA (13:36)
== END 2018-11-13 15:42 | disposition home or self-care (01) ==
LOC: ED 12:52
DX: I89.0 Lymphedema, not elsewhere classified (principal); T81.31XA Disruption of external operation (surgical) wound, not elsewhere classified, initial encounter; I10 Essential (primary) hypertension; E11.9 Type 2 diabetes mellitus without complications; Z79.4 Long term (current) use of insulin
CPT/HCPCS: 99282; 99283; A9270

== ENCOUNTER 2018-11-23 18:00 | Outpatient (CLI) | payer MEDICARE, BC, OTHER | END 2018-11-23 18:01 | disposition short-term general hospital (02) | LOC: EMS 18:00 | PROVIDERS: ATTEND Surgery | DX: R41.82 Altered mental status, unspecified (principal); R50.9 Fever, unspecified | CPT/HCPCS: A0425; A0427; A0888 ==

== ENCOUNTER 2019-02-18 18:07 | Outpatient (CLI) | payer MEDICARE, BC, OTHER | END 2019-02-18 18:08 | disposition short-term general hospital (02) | LOC: EMS 18:07 | PROVIDERS: ATTEND Surgery | DX: R47.9 Unspecified speech disturbances (principal); R41.0 Disorientation, unspecified; R68.83 Chills (without fever); M25.562 Pain in left knee | CPT/HCPCS: A0425; A0427; A0888 ==

== ENCOUNTER 2019-03-29 16:04 | Outpatient (CLI) | payer MEDICARE, OTHER | END 2019-03-29 16:05 | disposition short-term general hospital (02) | LOC: EMS 16:04 | PROVIDERS: ATTEND Surgery | DX: R53.1 Weakness (principal); R53.83 Other fatigue; R41.0 Disorientation, unspecified; R41.3 Other amnesia | CPT/HCPCS: A0425; A0427 ==

== ENCOUNTER 2019-08-09 14:01 | Outpatient (CLI) | payer MEDICARE, OTHER | END 2019-08-09 14:02 | disposition home or self-care (01) | LOC: LAB 14:01 | PROVIDERS: ATTEND Internal Medicine | DX: Z53.9 Procedure and treatment not carried out, unspecified reason (principal) ==

== ENCOUNTER 2019-10-25 11:03 | Outpatient (CLI) | payer MEDICARE, OTHER ==
--- NOTE | 2019-10-25 12:35 | XRAY Report ---
PROCEDURE: Hand 3 View RT INDICATIONS: R HAND TRAUMA TECHNIQUE: 3 views of the hand acquired. COMPARISON: None. FINDINGS: Bones: No fractures or dislocations. There are osteoarthritic changes involving the interphalangeal joints including moderate to severe degeneration at the second distal interphalangeal joint as well as the third and fourth proximal interphalangeal joints with joint space narrowing, subchondral scler osis, and subchondral cystic changes. There is ulnar sided deviation at the third and fourth PIP join ts. The trapezium is surgically absent. No suspicious bony lesions. Soft tissues: There are diffuse vascular calcifications. Periarticular soft tissue swelling is demons trated along the interphalangeal joints. IMPRESSION: 1. No fracture or dislocation. 2. Osteoarthritic changes of the interphalangeal joints as described. 3. Ulnar sided deviation at the third and fourth PIP joints likely related to degenerative change but the differential includes soft tissue injury. Reviewed by: Oneal Fontana MD on 10/25/2019 12:34 PM PDT Approved by: Oneal Fontana MD on 10/25/2019 12:34 PM PDT Station ID: [id number]
== END 2019-10-25 11:04 | disposition home or self-care (01) ==
LOC: DI 11:03
PROVIDERS: ATTEND Internal Medicine
DX: M79.641 Pain in right hand (principal); M19.041 Primary osteoarthritis, right hand

== ENCOUNTER 2019-12-11 21:12 | Outpatient (CLI) | payer MEDICARE, OTHER | END 2019-12-11 21:13 | disposition short-term general hospital (02) | LOC: EMS 21:12 | PROVIDERS: ATTEND Surgery | DX: M25.462 Effusion, left knee (principal); R41.0 Disorientation, unspecified; R51 Headache; R53.1 Weakness; Z96.652 Presence of left artificial knee joint | CPT/HCPCS: A0425; A0427 ==

== ENCOUNTER 2020-02-15 07:00 | Outpatient (CLI) | payer MEDICARE, OTHER ==
[2020-02-15 15:24] LABS: BASOPHILS # (AUTO) 0.1 10^3/uL (0.0-0.1); BASOPHILS % (AUTO) 1.4 %; EOSINOPHILS # (AUTO) 0.4 10^3/uL (0.0-0.7); EOSINOPHILS % (AUTO) 6.2 %; HGB - HEMOGLOBIN 8.9 g/dL (12.0-16.0); LYMPHOCYTES # (AUTO) 1.3 10^3/uL (1.5-3.5); LYMPHOCYTES % (AUTO) 19.7 %; MEAN CORPUSCULAR HEMOGLOBIN 27.9 pg (27.0-31.0); MEAN CORPUSCULAR HGB CONC 31.8 g/dL (32.0-36.0); MEAN CORPUSCULAR VOLUME 87.8 fL (81.0-99.0); MEAN PLATELET VOLUME 10.1 fL (7.9-10.8); MONOCYTES # (AUTO) 0.6 10^3/uL (0.0-1.0); MONOCYTES % (AUTO) 8.9 %; NEUTROPHILS # (AUTO) 4.1 10^3/uL (1.5-6.6); NEUTROPHILS % (AUTO) 63.3 %; PLT - PLATELET COUNT 412 10^3/uL (130-450); RED BLOOD COUNT 3.19 10^6/uL (4.20-5.40); RED CELL DISTRIBUTION WIDTH 15.4 % (12.0-15.0); WHITE BLOOD COUNT 6.5 x10^3/uL (4.8-10.8)
[2020-02-15 15:30] LABS: BUN - BLOOD UREA NITROGEN 23 mg/dL (6-20); CALCIUM 8.7 mg/dL (8.5-10.3); CARBON DIOXIDE - CO2 23 mmol/L (21-32); CHLORIDE 106 mmol/L (101-111); CREATININE 1.2 mg/dL (0.4-1.0); GLUCOSE 97 mg/dL (70-100); SODIUM 136 mmol/L (135-145); VANCOMYCIN,TROUGH 14.3 ug/mL (10.0-20.0)
== END 2020-02-15 23:59 | disposition home or self-care (01) ==
LOC: LAB.R 07:00
PROVIDERS: ATTEND Internal Medicine Infectious Disease
DX: T84.54XA Infection and inflammatory reaction due to internal left knee prosthesis, initial encounter (principal)
CPT/HCPCS: 80048; 80202; 85025

== ENCOUNTER 2020-02-22 13:30 | Outpatient (CLI) | payer MEDICARE, OTHER ==
[2020-02-22 15:38] LABS: BASOPHILS % (AUTO) 0.8 %; EOSINOPHILS # (AUTO) 0.4 10^3/uL (0.0-0.7); EOSINOPHILS % (AUTO) 7.9 %; HGB - HEMOGLOBIN 8.7 g/dL (12.0-16.0); LYMPHOCYTES % (AUTO) 18.1 %; MEAN CORPUSCULAR HEMOGLOBIN 27.3 pg (27.0-31.0); MEAN CORPUSCULAR HGB CONC 30.9 g/dL (32.0-36.0); MEAN CORPUSCULAR VOLUME 88.4 fL (81.0-99.0); MEAN PLATELET VOLUME 10.6 fL (7.9-10.8); MONOCYTES # (AUTO) 0.4 10^3/uL (0.0-1.0); MONOCYTES % (AUTO) 7.7 %; NEUTROPHILS # (AUTO) 3.5 10^3/uL (1.5-6.6); NEUTROPHILS % (AUTO) 65.1 %; PLT - PLATELET COUNT 259 10^3/uL (130-450); RED BLOOD COUNT 3.19 10^6/uL (4.20-5.40); RED CELL DISTRIBUTION WIDTH 15.7 % (12.0-15.0); WHITE BLOOD COUNT 5.3 x10^3/uL (4.8-10.8)
[2020-02-22 15:54] LABS: BUN - BLOOD UREA NITROGEN 27 mg/dL (6-20); CALCIUM 8.5 mg/dL (8.5-10.3); CARBON DIOXIDE - CO2 22 mmol/L (21-32); CHLORIDE 106 mmol/L (101-111); CREATININE 1.1 mg/dL (0.4-1.0); GLUCOSE 111 mg/dL (70-100); SODIUM 136 mmol/L (135-145); VANCOMYCIN,TROUGH 13.9 ug/mL (10.0-20.0)
== END 2020-02-22 23:59 | disposition home or self-care (01) ==
LOC: LAB.R 13:30
PROVIDERS: ATTEND Internal Medicine Infectious Disease
DX: T84.54XA Infection and inflammatory reaction due to internal left knee prosthesis, initial encounter (principal); I82.91 Chronic embolism and thrombosis of unspecified vein
CPT/HCPCS: 80048; 80202; 84443; 85025

== ENCOUNTER 2020-08-28 06:25 | Outpatient (CLI) | payer MEDICARE, OTHER ==
--- NOTE | 2020-08-28 09:05 | Ultrasound Report ---
PROCEDURE: Abdomen Complete INDICATIONS: Normocytic anemia TECHNIQUE: Real-time scanning was performed of the abdominal and retroperitoneal organs, with image documentatio n. COMPARISON: CT abdomen and pelvis 06/13/2018 FINDINGS: Liver: Heterogeneous hepatic echotexture. No liver mass. The main portal vein measures approximately 2 cm. Gallbladder: Status post cholecystectomy. Biliary ducts: The common bile duct measures approximately 1 cm at the alisha hepatis, likely represen ting mild dilatation due to postcholecystectomy reservoir phenomenon. The remainder of the biliary tr ee is normal in caliber. Pancreas: Visualized portions of the pancreas are sonographically normal. Spleen: Spleen is normal in size and homogeneous in echotexture. Multiple punctate echogenic foci w ithin spleen likely reflecting prior granulomatous exposure. Kidneys: Left renal cyst measuring 1.5 cm. Otherwise normal appearance of both kidneys. No hydronephr osis. Aorta: Obscured by bowel gas. Iliacs: Obscured by bowel gas. IVC: Intrahepatic inferior vena cava is patent. Miscellaneous: No free abdominal fluid. IMPRESSION: No splenomegaly. Multiple punctate echogenic foci within spleen likely reflecting prior granulomatous exposure. Heterogeneous hepatic echogenicity with mild coarsening of the hepatic echotexture. This is a nonspec ific finding which most likely represents an element of steatosis, although steatohepatitis or anothe r inflammatory disorder of the liver cannot be excluded strictly on the basis of imaging. Mild dilata tion of the main portal vein suggests an element of portal hypertension. Reviewed by: Sylvain Elise MD on 08/28/2020 9:04 AM PDT Approved by: Sylvain Elise MD on 08/28/2020 9:04 AM PDT Station ID: [id number]
== END 2020-08-28 06:26 | disposition home or self-care (01) ==
LOC: DI 06:25
PROVIDERS: ATTEND Internal Medicine Hematology & Oncology
DX: D66 Hereditary factor VIII deficiency (principal); D64.9 Anemia, unspecified; D75.82 Heparin induced thrombocytopenia (HIT)

== ENCOUNTER 2020-10-12 11:14 | Outpatient (CLI) | payer MEDICARE, OTHER ==
[2020-10-12 11:55] LABS: CALCIUM 8.9 mg/dL (8.5-10.3); CREATININE 1.8 mg/dL (0.4-1.0); POTASSIUM 4.6 mmol/L (3.5-5.0)
[2020-10-12 12:36] LABS: CREATININE,URINE 85.3 mg/dL; PROTEIN/CREATININE RATIO,URINE 0.3 (<=0.2)
== END 2020-10-12 11:15 | disposition home or self-care (01) ==
LOC: LAB 11:14
PROVIDERS: ATTEND Internal Medicine Nephrology
DX: N05.9 Unspecified nephritic syndrome with unspecified morphologic changes (principal); D70.9 Neutropenia, unspecified; R80.9 Proteinuria, unspecified; D63.1 Anemia in chronic kidney disease
CPT/HCPCS: 36415; 80048; 82570; 84156; 85027

== ENCOUNTER 2020-10-24 11:30 | Outpatient (CLI) | payer MEDICARE, OTHER ==
[2020-10-24 12:27] LABS: CREATININE 1.9 mg/dL (0.4-1.0); CREATININE,URINE 100.8 mg/dL; PROTEIN/CREATININE RATIO,URINE 0.2 (<=0.2)
== END 2020-10-24 11:31 | disposition home or self-care (01) ==
LOC: LAB 11:30
PROVIDERS: ATTEND Internal Medicine Nephrology
DX: I77.6 Arteritis, unspecified (principal); R80.9 Proteinuria, unspecified
CPT/HCPCS: 36415; 81599; 82565; 82570; 84156; 86021

== ENCOUNTER 2020-11-23 10:21 | Outpatient (CLI) | payer MEDICARE, OTHER ==
[2020-11-23 10:47] LABS: CREATININE 1.7 mg/dL (0.4-1.0)
== END 2020-11-23 10:22 | disposition home or self-care (01) ==
LOC: LAB 10:21
PROVIDERS: ATTEND Internal Medicine Nephrology
DX: N05.9 Unspecified nephritic syndrome with unspecified morphologic changes (principal)
CPT/HCPCS: 36415; 82565

== ENCOUNTER 2021-02-13 12:25 | Outpatient (CLI) | payer MEDICARE, OTHER ==
--- NOTE | 2021-02-13 13:19 | CT Report ---
PROCEDURE: HEAD WO INDICATIONS: ALY AFTER FALL TECHNIQUE: Noncontrast 4.5 mm thick angled axial sections acquired from the foramen magnum to the vertex. For r adiation dose reduction, the following was used: automated exposure control, adjustment of mA and/or kV according to patient size. COMPARISON: CT Head 02/13/21 FINDINGS: Image quality: Excellent. The ventricular system and cortical sulci demonstrate atrophy, consistent for patient's stated age. There are areas of hypodensity in the periventricular and subcortical white matter. There is no acut e intra or extra-axial fluid collection. No acute hemorrhage, mass lesion or midline shift. Brainst em is unremarkable. Globes are symmetrical. Sinuses are aerated. Osseous structures are intact. IMPRESSION: 1. No acute intracranial process. 2. Moderate atrophy and chronic microvascular ischemic changes. Reviewed by: Anni Dent MD on 02/13/2021 1:17 PM PST Approved by: Anni Dent MD on 02/13/2021 1:17 PM PST Station ID: [id number]
== END 2021-02-13 12:26 | disposition home or self-care (01) ==
LOC: DI 12:25
PROVIDERS: ATTEND Internal Medicine
DX: G44.309 Post-traumatic headache, unspecified, not intractable (principal)

== ENCOUNTER 2021-04-11 08:00 | Outpatient (CLI) | payer MEDICARE, OTHER | END 2021-04-11 23:59 | disposition home or self-care (01) | LOC: LAB.R 08:00 | PROVIDERS: ATTEND Internal Medicine | DX: Z20.822 Contact with and (suspected) exposure to COVID-19 (principal) ==

== ENCOUNTER 2021-05-09 08:00 | Outpatient (CLI) | payer MEDICARE, OTHER ==
[2021-05-09 16:05] LABS: MUDS CUTOFF CONCENTRATIONS CUTOFF CONC BELOW:
[2021-05-09 16:14] LABS: BILIRUBIN,URINE NEGATIVE (NEGATIVE); GLUCOSE, URINE (UA) NEGATIVE (NEGATIVE); KETONES,URINE (UA) NEGATIVE (NEGATIVE); LEUKOCYTE ESTERASE, URINE TRACE (NEGATIVE); NITRITE,URINE NEGATIVE (NEGATIVE); OCCULT BLOOD,URINE NEGATIVE (NEGATIVE); PH,URINE 5.5 PH (5.0-7.5); PROTEIN,URINE NEGATIVE (NEGATIVE); UROBILINOGEN,URINE 0.2 (NORMAL) E.U./dL (NORMAL)
[2021-05-09 16:16] LABS: CLARITY,URINE CLEAR (CLEAR)
[2021-05-09 16:26] LABS: AMPHETAMINE SCREEN,URINE NEGATIVE (NEGATIVE); BARBITURATE SCREEN,UR NEGATIVE (NEGATIVE); BENZODIAZEPINES SCREEN, URINE NEGATIVE (NEGATIVE); COCAINE SCREEN URINE NEGATIVE (NEGATIVE); METHADONE SCREEN, URINE NEGATIVE (NEGATIVE); METHAMPHETAMINES SCREEN, URINE NEGATIVE (NEGATIVE); OPIATE SCREEN, URINE POSITIVE (NEGATIVE); OXYCODONE SCREEN, URINE NEGATIVE (NEGATIVE); PROPOXYPHENE SCREEN, URINE NEGATIVE (NEGATIVE); THC CANNABINOID SCREEN, URINE NEGATIVE (NEGATIVE); TRICYCLIC ANTIDEPRESSANT,URINE POSITIVE (NEGATIVE)
[2021-05-09 16:27] LABS: BACTERIA,URINE Rare /HPF (None Seen); RBC,URINE 0-5 /HPF (0-5); SQUAMOUS EPITHELIAL CELL,UR NONE SEEN (<= Few); WBC CLUMPS,URINE PRESENT
== END 2021-05-09 23:59 ==
LOC: LAB.R 08:00
PROVIDERS: ATTEND Internal Medicine
DX: R39.9 Unspecified symptoms and signs involving the genitourinary system (principal); Z79.891 Long term (current) use of opiate analgesic
CPT/HCPCS: 80306; 81001; 81003; 87077; 87086; 87181

== ENCOUNTER 2021-06-12 12:52 | Outpatient (CLI) | payer MEDICARE, OTHER ==
[2021-06-12 13:47] LABS: CREATININE,URINE 64.9 mg/dL; PROTEIN/CREATININE RATIO,URINE 0.5 (<=0.2)
== END 2021-06-12 12:53 | disposition home or self-care (01) ==
LOC: LAB 12:52
PROVIDERS: ATTEND Internal Medicine Nephrology
DX: R80.9 Proteinuria, unspecified (principal)
CPT/HCPCS: 82570; 84156

== ENCOUNTER 2021-09-09 16:29 | Outpatient (CLI) | payer BC, MEDICARE, OTHER ==
[2021-09-09 16:40] LABS: BASOPHILS % (AUTO) 0.6 %; EOSINOPHILS # (AUTO) 0.2 10^3/uL (0.0-0.7); EOSINOPHILS % (AUTO) 2.6 %; HCT - HEMATOCRIT 37.4 % (37.0-47.0); LYMPHOCYTES # (AUTO) 1.4 10^3/uL (1.5-3.5); LYMPHOCYTES % (AUTO) 19.3 %; MEAN CORPUSCULAR HEMOGLOBIN 29.4 pg (27.0-31.0); MEAN CORPUSCULAR HGB CONC 32.1 g/dL (32.0-36.0); MEAN CORPUSCULAR VOLUME 91.7 fL (81.0-99.0); MONOCYTES # (AUTO) 0.6 10^3/uL (0.0-1.0); NEUTROPHILS # (AUTO) 4.8 10^3/uL (1.5-6.6); NEUTROPHILS % (AUTO) 69.2 %; PLT - PLATELET COUNT 222 10^3/uL (130-450); RED BLOOD COUNT 4.08 10^6/uL (4.20-5.40); RED CELL DISTRIBUTION WIDTH 13.1 % (12.0-15.0)
[2021-09-09 16:51] LABS: CALCIUM 9.4 mg/dL (8.5-10.3); CREATININE 1.5 mg/dL (0.4-1.0); POTASSIUM 4.4 mmol/L (3.5-5.0)
[2021-09-09 18:27] LABS: ESTIMATED AVERAGE GLUCOSE 143 mg/dL (70-100); HEMOGLOBIN A1c% 6.6 % (4.27-6.07)
== END 2021-09-09 16:30 | disposition home or self-care (01) ==
LOC: LAB.R 16:29
PROVIDERS: ATTEND Internal Medicine
DX: I10 Essential (primary) hypertension (principal); E03.9 Hypothyroidism, unspecified; F32.A Depression, unspecified; E11.9 Type 2 diabetes mellitus without complications
CPT/HCPCS: 80048; 83036; 83735; 84443; 85025

== ENCOUNTER 2022-03-10 16:24 | Outpatient (CLI) | payer MEDICARE, OTHER ==
[2022-03-10 17:01] LABS: BASOPHILS # (AUTO) 0.1 10^3/uL (0.0-0.1); BASOPHILS % (AUTO) 0.6 %; EOSINOPHILS # (AUTO) 0.2 10^3/uL (0.0-0.7); EOSINOPHILS % (AUTO) 1.7 %; HCT - HEMATOCRIT 40.1 % (37.0-47.0); LYMPHOCYTES % (AUTO) 21.3 %; MEAN CORPUSCULAR HEMOGLOBIN 29.5 pg (27.0-31.0); MEAN CORPUSCULAR HGB CONC 32.4 g/dL (32.0-36.0); MEAN CORPUSCULAR VOLUME 91.1 fL (81.0-99.0); MONOCYTES # (AUTO) 0.6 10^3/uL (0.0-1.0); MONOCYTES % (AUTO) 6.2 %; NEUTROPHILS # (AUTO) 6.5 10^3/uL (1.5-6.6); NEUTROPHILS % (AUTO) 69.7 %; PLT - PLATELET COUNT 274 10^3/uL (130-450); RED CELL DISTRIBUTION WIDTH 13.4 % (12.0-15.0); WHITE BLOOD COUNT 9.4 x10^3/uL (4.8-10.8)
[2022-03-10 17:22] LABS: ALBUMIN 4.1 g/dL (3.2-5.5); ALBUMIN/GLOBULIN RATIO 1.1 (1.0-2.2); ALKALINE PHOSPHATASE 83 IU/L (42-121); ALT ALANINE AMINOTRANSFERASE 21 IU/L (10-60); AST ASPARTATE AMINOTRANSFERASE 22 IU/L (10-42); BILIRUBIN,TOTAL 0.3 mg/dL (0.2-1.0); BUN - BLOOD UREA NITROGEN 44 mg/dL (6-20); CALCIUM 9.4 mg/dL (8.5-10.3); CARBON DIOXIDE - CO2 25 mmol/L (21-32); CHLORIDE 105 mmol/L (101-111); CHOL/HDL RATIO 4.6 (<4.4); CHOLESTEROL 179 mg/dL; CREATININE 1.6 mg/dL (0.4-1.0); GFR - MDRD 32 (>89); GLUCOSE 132 mg/dL (70-100); HDL CHOLESTEROL 39 mg/dL; LDL CHOLESTEROL,CALCULATED 73 mg/dL; LDL/HDL RATIO 1.9 (<4.4); POTASSIUM 4.6 mmol/L (3.5-5.0); SODIUM 142 mmol/L (135-145); TOTAL PROTEIN 7.9 g/dL (6.7-8.2); TRIGLYCERIDES 334 mg/dL; VLDL CHOLESTEROL 67 mg/dL
[2022-03-10 17:27] LABS: CREATININE,URINE 63.9 mg/dL; MICROALBUM/CREATININE RATIO,UR 342.7 ug/mg (<30.0); MICROALBUMIN,URINE 21.9 mg/dL (0-300.0)
[2022-03-10 17:35] LABS: THYROID STIMULATING HORMONE 0.28 uIU/mL (0.34-5.60)
[2022-03-10 21:09] LABS: ESTIMATED AVERAGE GLUCOSE 131 mg/dL (70-100); HEMOGLOBIN A1c% 6.2 % (4.27-6.07)
== END 2022-03-10 16:25 | disposition home or self-care (01) ==
LOC: LAB 16:24
PROVIDERS: ATTEND Orthopaedic Surgery
DX: Z01.818 Encounter for other preprocedural examination (principal); D64.9 Anemia, unspecified; E78.5 Hyperlipidemia, unspecified; K46.9 Unspecified abdominal hernia without obstruction or gangrene; I10 Essential (primary) hypertension; E03.9 Hypothyroidism, unspecified; R11.2 Nausea with vomiting, unspecified; G47.33 Obstructive sleep apnea (adult) (pediatric); G62.9 Polyneuropathy, unspecified; J30.2 Other seasonal allergic rhinitis
CPT/HCPCS: 36415; 80053; 80061; 82043; 82570; 82607; 83036; 83721; 84443; 85025; 93005

== ENCOUNTER 2022-06-11 15:06 | Outpatient (CLI) | payer MEDICARE, OTHER | END 2022-06-11 15:07 | disposition home or self-care (01) | LOC: LAB 15:06 | PROVIDERS: ATTEND Internal Medicine | DX: E03.9 Hypothyroidism, unspecified (principal) | CPT/HCPCS: 36415; 84443 ==

== ENCOUNTER 2022-09-24 19:19 | Outpatient (CLI) | payer MEDICARE, OTHER | END 2022-09-24 23:59 | disposition short-term general hospital (02) | LOC: EMS 19:19 | DX: R41.0 Disorientation, unspecified (principal); R50.9 Fever, unspecified | CPT/HCPCS: A0425; A0429; A0888 ==

== ENCOUNTER 2022-12-08 12:45 | Outpatient (CLI) | payer MEDICARE, OTHER | END 2022-12-08 12:46 | disposition critical access hospital (66) | LOC: EMS 12:45 | DX: R06.00 Dyspnea, unspecified (principal); T63.441A Toxic effect of venom of bees, accidental (unintentional), initial encounter; Y92.009 Unspecified place in unspecified non-institutional (private) residence as the place of occurrence of the external cause | CPT/HCPCS: A0425; A0427 ==

== ENCOUNTER 2022-12-08 13:01 | Emergency (ER) | payer MEDICARE, OTHER ==
[2022-12-08] MEDS ORDERED: methylPREDNISolone SUCCINATE 125 MG/2 ML VIAL IVP STA (13:21)
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
[2022-12-08] MEDS ORDERED: predniSONE 20 MG TABLET PO STA (14:33)
[2022-12-08 14:59] VITALS: BP 213/87; O2SAT 95
== END 2022-12-08 15:01 | disposition home or self-care (01) ==
LOC: EDSEX → ED 13:01
DX: R21 Rash and other nonspecific skin eruption (principal); T63.441A Toxic effect of venom of bees, accidental (unintentional), initial encounter; Z66 Do not resuscitate
CPT/HCPCS: 96374; 99283

== ENCOUNTER 2023-10-13 16:00 | Outpatient (CLI) | payer MEDICARE, OTHER | END 2023-10-13 23:59 | disposition critical access hospital (66) | LOC: EMS 16:00 | PROVIDERS: ATTEND Emergency Medicine | DX: R10.33 Periumbilical pain (principal); R19.35 Periumbilic abdominal rigidity; R10.815 Periumbilic abdominal tenderness; R51.9 Headache, unspecified; R11.0 Nausea | CPT/HCPCS: A0425; A0427 ==

== ENCOUNTER 2023-10-13 16:36 | Emergency (ER) | payer MEDICARE, OTHER ==
[2023-10-13] MEDS ORDERED: DIATRIZOATE MEGLU/DIATRIZO SOD 30 ML BOTTLE PO ONE (16:54)
[2023-10-13] MEDS ORDERED: iohexoL-300 100 ML VIAL ONE (16:54)
--- NOTE | 2023-10-13 16:54 | ED Physician Documentation ---
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 She developed a new anterior abdominal lump on Thursday, 3 days ago with significant pain. She has had normal bowel movements, but vomited 4 times yesterday. 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 : Other HEENT: Dental implants Psych: None Musculoskeletal: Osteoarthritis, Rheumatoid arthritis Derm: Other drug resistant infections - Past Surgical History Past Surgical History: Yes General: Cholecystectomy, Other Ortho: Knee replacement, Arthroscopic surgery, Carpal Tunnel surgery, Other /PHOTOGRAPHS CURATOR: section, Hysterectomy HEENT: Tonsil/Adenoidectomy - Present Medications Home Medications: Ambulatory Orders Medication Instructions Recorded Confirmed Albuterol Sulfate [Proair Hfa 2 puffs INH Q4H PRN 04/24/16 05/24/21 Inhaler] Celecoxib [Celebrex] 200 mg PO DAILY 04/24/16 05/24/21 Cyclobenzaprine [Flexeril] 10 mg PO TID 04/24/16 05/24/21 Fexofenadine HCl [Latoya Allergy] 180 mg PO DAILY 04/24/16 05/24/21 Hydrocodone/Acetaminophen 2 tab PO Q4H PRN 04/24/16 05/24/21 [Hydrocodon-Acetaminoph 7.5-325] Insulin Lispro [Humalog Kwikpen 0 - 25 units SUBQ .SLIDINGSCALE PRN 04/24/16 05/24/21 U-100] Levothyroxine Sodium [Synthroid] 200 mcg PO MOTUWETHFRSA@0700 04/24/16 05/24/21 Losartan [Cozaar] 25 mg PO DAILY 04/24/16 05/24/21 Montelukast [Singulair] 10 mg PO DAILY 04/24/16 05/24/21 Pregabalin [Lyrica] 50 mg PO TID 04/24/16 05/24/21 glipiZIDE [Glucotrol Xl] 5 mg PO DAILY 04/24/16 05/24/21 Cholecalciferol [Vitamin D3] 5,000 unit PO DAILY 08/03/18 05/24/21 Ferrous Gluconate [Iron] 240 mg PO DAILY 08/03/18 05/24/21 Insulin Degludec [Tresiba 55 units SUBQ DAILY 08/03/18 05/24/21 Flextouch U-100] Lactose-Reduced Food [Protein 414 ml PO BID 08/03/18 05/24/21 Nutritional Shake] Levothyroxine Sodium [Synthroid] 400 mcg PO WRIGHT@0700 08/03/18 05/24/21 Multivit-Min/Iron/Folic/Ohc862 1 each PO DAILY 08/03/18 05/24/21 [Hair, Skin and Nails Caplet] Multivitamin [Theragran] 1 each PO DAILY 08/03/18 05/24/21 Rabeprazole Sodium [Aciphex] 20 mg PO QDAC 08/03/18 05/24/21 Saccharomyces Boulardii [Florastor] 250 mg PO QPM 08/03/18 05/24/21 Tolterodine Tartrate [Detrol LA] 4 mg PO DAILY 08/03/18 05/24/21 Vitamin B Complex/Folic Acid 2,000 mcg PO DAILY 08/03/18 05/24/21 [B-Stress Capsules] Warfarin Sodium 7.5 mg PO SUWE 08/03/18 05/24/21 hydroCHLOROthiazide 50 mg PO DAILY 08/03/18 05/24/21 [Hydrochlorothiazide] ondansetron HCL [Zofran] 4 mg PO TID PRN 08/03/18 05/24/21 Doxycycline Hyclate 100 mg PO BID #14 capsule 11/13/18 05/24/21 Dulaglutide [Trulicity] 1.5 mg SQ DAILY 10/26/20 05/24/21 EPINEPHrine [Epinephrine] 0.3 mg IJ ONCE PRN #1 each 12/08/22 predniSONE [Deltasone] 40 mg PO DAILY #10 tablet 12/08/22 - Allergies Allergies/Adverse Reactions: Allergies Allergy/AdvReac Type Severity Reaction Status Date / Time aspirin Allergy Severe Respiratory Verified 10/13/23 17:24 cefamandole nafate * Allergy Severe Respiratory Verified 10/13/23 17:24 [From Mandol] Heparin Analogues Allergy Severe Respiratory Verified 10/13/23 17:24 meperidine HCl * Allergy Severe Respiratory Verified 10/13/23 17:24 [From Demerol] naproxen Allergy Severe Respiratory Verified 10/13/23 17:24 rofecoxib [From Vioxx] Allergy Severe Respiratory Verified 10/13/23 17:24 venom-honey bee Allergy Severe Respiratory Verified 10/13/23 17:24 venom-wasp Allergy Severe Respiratory Verified 10/13/23 17:24 zoster vaccine live Allergy Severe Respiratory Verified 10/13/23 17:24 promethazine HCl * Allergy Respiratory Verified 10/13/23 17:24 [From Phenergan] Zceyuko-AJS-QrM Reductase Allergy Respiratory Verified 10/13/23 17:24 Inhibitor [Hpamnis-Lri-Ukm Reductase Inhibitor] amoxicillin trihydrate * AdvReac Intermediate Cramps Verified 10/13/23 17:24 [From Augmentin] erythromycin base AdvReac Intermediate Dizziness Verified 10/13/23 17:24 [Erythromycin Base] metformin AdvReac Intermediate Nausea Verified 10/13/23 17:24 potassium clavulanate * AdvReac Intermediate Cramps Verified 10/13/23 17:24 [From Augmentin] Sulfa (Sulfonamide AdvReac Intermediate Itching Verified 10/13/23 17:24 Antibiotics) levofloxacin [From Levaquin] AdvReac Mild Nausea Verified 10/13/23 17:24 cadexomer iodine * AdvReac Unknown Unknown Verified 10/13/23 17:24 [From Iodosorb] - Social History Does the pt smoke?: No Smoking Status: Never smoker Does the pt drink ETOH?: Yes Does the pt have substance abuse?: No - Immunizations Immunizations are current?: Yes - POLST Patient has POLST: No POLST Status: DNR PD ED PE NORMAL - Vitals Vital signs reviewed: Yes - General General: Alert and oriented X 3, No acute distress - HEENT HEENT: PERRL, EOMI - Cardiac Cardiac: RRR, No murmur - Respiratory Respiratory: No respiratory distress, Clear bilaterally - Abdomen Abdomen: Normal bowel sounds, Soft, Other (Extensive well-healed surgical scars with hyperactive bowel sounds. There is what seems like probably a hernia just to the right of the midline ex lap scar with focal tenderness but it does seem somewhat reducible but pops right back out.) - Extremities Extremities: Other (Trace pitting pedal edema) - Neuro Neuro: Alert and oriented X 3, Normal speech Results - Vitals Vitals: Vital Signs - 24 hr 10/13/23 10/13/23 17:24 18:41 Temperature 36.5 C Heart Rate 89 86 Respiratory 16 16 Rate Blood Pressure 144/81 H 154/73 H O2 Saturation 99 95 Oxygen O2 Source Room air - Labs Labs: Laboratory Tests 10/13/23 10/13/23 10/13/23 17:23 17:23 17:23 WBC 8.7 RBC 3.91 L Hgb 11.5 L Hct 35.6 L MCV 91.0 MCH 29.4 MCHC 32.3 RDW 12.5 Plt Count 219 MPV 10.4 Neut # (Auto) 6.5 Lymph # (Auto) 1.4 L [place] # (Auto) 0.6 Eos # (Auto) 0.3 Baso # (Auto) 0.1 Absolute Nucleated RBC 0.00 Nucleated RBC % 0.0 PT 14.9 H INR 1.4 H Sodium 138 Potassium 3.5 Chloride 101 Carbon Dioxide 28 Anion Gap 9.0 BUN 47 H Creatinine 1.7 H Estimated GFR (MDRD) 30 L Glucose 117 H Lactic Acid Calcium 9.8 Total Bilirubin 0.4 AST 17 ALT 13 Alkaline Phosphatase 74 Total Protein 7.5 Albumin 4.1 Globulin 3.4 Albumin/Globulin Ratio 1.2 Lipase 14 10/13/23 17:23 WBC RBC Hgb Hct MCV MCH MCHC RDW Plt Count MPV Neut # (Auto) Lymph # (Auto) [place] # (Auto) Eos # (Auto) Baso # (Auto) Absolute Nucleated RBC Nucleated RBC % PT INR Sodium Potassium Chloride Carbon Dioxide Anion Gap BUN Creatinine Estimated GFR (MDRD) Glucose Lactic Acid 0.6 Calcium Total Bilirubin AST ALT Alkaline Phosphatase Total Protein Albumin Globulin Albumin/Globulin Ratio Lipase - Rads (name of study) CT A/P Relevant Findings:: Final report received, EMP independent interpretation of test PD Medical Decision Making - ED course ED course: She has a complex medical and surgical history and presents with acute pain and vomiting. After 1 mg of Dilaudid she was comfortable and CT demonstrates multiple findings which were discussed with her and she was given a copy of her CT but the main thing was dilation of the bowel in the left upper quadrant with possible postsurgical dysmotility versus partial SBO. She wanted to go home and was given instructions to do clear liquid diet for a day and follow follow-up with her surgeon and close return precautions. Departure - Departure Disposition: Home, Self Care Condition: Good Record reviewed to determine appropriate education?: Yes Instructions: Obstruction Sm Bowel Comments: It looks like today you either have post surgical slowing of the bowels or p artial small bowel obstruction. I think it is fine to go ahead and do a clear liquid diet for the next 24 hours with the pain and nausea medication you have at home. If you worsen please return please talk to your surgeon at [facility], next available appointment.
[2023-10-13 17:27] LABS: BASOPHILS # (AUTO) 0.1 10^3/uL (0.0-0.1); BASOPHILS % (AUTO) 0.8 %; EOSINOPHILS # (AUTO) 0.3 10^3/uL (0.0-0.7); EOSINOPHILS % (AUTO) 3.1 %; HCT - HEMATOCRIT 35.6 % (37.0-47.0); HGB - HEMOGLOBIN 11.5 g/dL (12.0-16.0); LYMPHOCYTES # (AUTO) 1.4 10^3/uL (1.5-3.5); LYMPHOCYTES % (AUTO) 15.5 %; MEAN CORPUSCULAR HEMOGLOBIN 29.4 pg (27.0-31.0); MEAN CORPUSCULAR HGB CONC 32.3 g/dL (32.0-36.0); MEAN PLATELET VOLUME 10.4 fL (7.9-10.8); MONOCYTES # (AUTO) 0.6 10^3/uL (0.0-1.0); MONOCYTES % (AUTO) 6.3 %; NEUTROPHILS # (AUTO) 6.5 10^3/uL (1.5-6.6); PLT - PLATELET COUNT 219 10^3/uL (130-450); RED BLOOD COUNT 3.91 10^6/uL (4.20-5.40); RED CELL DISTRIBUTION WIDTH 12.5 % (12.0-15.0); WHITE BLOOD COUNT 8.7 x10^3/uL (4.8-10.8)
[2023-10-13 17:33] LABS: INR 1.4 (0.8-1.2); PT - PROTHROMBIN TIME 14.9 secs (9.9-12.6)
[2023-10-13 17:41] LABS: ALBUMIN 4.1 g/dL (3.2-5.5); ALBUMIN/GLOBULIN RATIO 1.2 (1.0-2.2); BILIRUBIN,TOTAL 0.4 mg/dL (0.2-1.0); CALCIUM 9.8 mg/dL (8.5-10.3); CREATININE 1.7 mg/dL (0.6-1.3); POTASSIUM 3.5 mmol/L (3.5-4.5); TOTAL PROTEIN 7.5 g/dL (6.4-8.9)
[2023-10-13] MEDS: HYDROmorphone 1 MG/ML CARPUJECT IVP STA (18:14)
[2023-10-13] MEDS: DIATRIZOATE MEGLU/DIATRIZO SOD 30 ML BOTTLE PO ONE (18:38)
[2023-10-13] MEDS: iohexoL-300 100 ML VIAL IVP ONE (18:39)
--- NOTE | 2023-10-13 19:15 | CT Report ---
PROCEDURE: Abdomen/Pelvis W INDICATIONS: IV and p.o., anterior abdominal pain, ?hernia CONTRAST: 100ml [id number] TECHNIQUE: After the administration of intravenous contrast, a CT scan of the abdomen and pelvis was performed. Images were recorded and evaluated at appropriate window settings. Reformats: coronal and sagittal. F or radiation dose reduction, the following was used: automated exposure control, adjustment of mA and /or kV according to patient size. COMPARISON: 08/03/2018 FINDINGS: Image quality: Diagnostic Lower chest: Bibasilar pulmonary atelectasis/scarring, slightly greater on the right. Nonspecific mil d distal esophageal wall thickening with oral contrast indicating esophageal dysmotility or reflux. A ortic and annular and possible pulmonary cardiac calcifications. Liver: Unremarkable Gallbladder and biliary system: Absent, ectatic biliary tree again seen, likely related to postcholec ystectomy. CBD measures 11 mm, consider LFT correlation. Pancreas: No ductal dilation Spleen: Nonenlarged Adrenals: Mild bilateral thickening again seen Kidneys: No solid mass or hydronephrosis. Subcentimeter lesions are too small characterize, usually c ysts. Left renal cysts are also seen. No complicated lesion identified requiring follow-up. No hydron ephrosis. Vessels and lymph nodes: The main portal vein appears patent. No abdominal aortic aneurysm. No pathol ogic lymph nodes by size criteria. Bowel and peritoneum: There is rectus diastases containing nonobstructed bowel. A superimposed small fat-containing midline ventral hernia near the umbilicus is also probably present. No pathologic asci john or drainable abscess. There is moderate fecal loading. Right bowel suture lines. There is moderate dilation of the proximal jejunum, as well as the duodenum. This is upstream to sutu re lines in the left upper quadrant most dilated loop measures up to 5.5 cm. Bypass changes Body wall: Unremarkable otherwise Pelvis: Obscured by metallic artifact. Air is seen in the bladder, correlate with recent instrumentat ion. The uterus is absent. Suggestion of pelvic descent is present Bones: Bilateral hip arthroplasties. No acute or suspicious osseous finding. There are degenerative c hanges. IMPRESSION: Moderate dilation of bowel upstream of left upper quadrant jejunal suture line. Findings may represen t postsurgical dysmotility versus partial obstruction. Gastric bypass changes. Rectus diastases and small superimposed fat-containing umbilical hernia, without obstructive bowel wi thin the sac Moderate fecal loading. Other findings as above. Reviewed by: Sylvester Landaverde MD on 10/13/2023 7:14 PM PDT Approved by: Sylvester Landaverde MD on 10/13/2023 7:14 PM PDT Station ID: [id number]
[2023-10-13 19:39] VITALS: BP 146/80; O2SAT 98
== END 2023-10-13 19:35 | disposition home or self-care (01) ==
LOC: EDUNIT# → ED 16:36
DX: K56.609 Unspecified intestinal obstruction, unspecified as to partial versus complete obstruction (principal); Z98.84 Bariatric surgery status; D75.829 Heparin-induced thrombocytopenia, unspecified; Z79.01 Long term (current) use of anticoagulants; I10 Essential (primary) hypertension; E11.9 Type 2 diabetes mellitus without complications; G47.30 Sleep apnea, unspecified; E03.9 Hypothyroidism, unspecified; Z79.4 Long term (current) use of insulin
CPT/HCPCS: 36415; 74177; 80053; 83605; 83690; 85025; 85610; 96374; 99283; 99284; J1170; Q9963; Q9967